=== PATIENT | female | born 1965 | race African-American/Black ===

== ENCOUNTER 2017-01-15 13:35 | Inpatient (IN) ==
[2017-01-15 15:17] LABS: ABG Base Excess 2.1 MMOL/L (-2.5-2.5); ABG HCO3 26.1 MMOL/L (20-26); ABG Oxygen Saturation 78.9 % (95-100); ABG PCO2 36.7 MM HG (35-48); ABG PH 7.458 (7.35-7.45); ABG PO2 45.5 MM HG (80-95); ABG TCO2 24.1 MMOL/L (23-27)
--- NOTE | 2017-01-15 15:20 | XRay Report ---
PA and lateral chest. Indication: Shortness of breath. Comparison: January 06, 2017. The heart is enlarged. The pulmonary vasculature is prominent. The interstitial lung markings are prominent. No consolidation. No pneumothorax. No pleural effusion. Impression: Significant interval change, now with findings consistent with congestive heart failure. PROCEDURE INTERPRETED AT [facility] DEPARTMENT OF RADIOLOGY Final Report Signed by: Dr. Saba Leyva
[2017-01-15] MEDS ORDERED: ALBUTEROL 2.5 MG/3 ML NEB RESP TX STA (15:25)
[2017-01-15 15:41] LABS: Basophils % 0.5 % (0.0-0.8); Eosinophils % 0.5 % (0.00-10.9); Hematocrit 28.7 VOL% (35.7-47.0); Hemoglobin 8.7 GM/DL (12.0-16.0); Immature Granulocytes % 1.5 %; Immature Granulocytes Absolute 0.09 #; Lymphocytes # 0.8 10*3/uL (1.4-4.0); Mean Corpuscular HGB Conc 30.3 GM/DL (32-36); Mean Corpuscular Hemoglobin 21 PG (27-34); Mean Corpuscular Volume 68.8 FL (87-102); Mean Platelet Volume 11.9 FL (9.6-12.0); Monocytes # 0.4 10*3/uL (0.11-0.8); Monocytes % 6.9 % (1.7-12.7); NRBC # 0.03 10*3/uL; Neutrophils # 4.7 10*3/uL (1.4-7.4); Neutrophils % 77.6 % (38.7-73.9); Platelet Count 451 T/CUMM (130-400); Red Blood Count 4.17 MC/CUMM (3.8-5.5); Red Cell Distribution Width 17.6 % (9.3-17.3); White Blood Count 6.1 T/CUMM (4-12)
[2017-01-15] MEDS ORDERED: ALBUTEROL 2.5 MG/3 ML NEB RESP TX ONE (15:54)
[2017-01-15] MEDS ORDERED: ONDANSETRON 4 MG/2 ML VIAL IV PRN (16:07)
[2017-01-15 16:09] LABS: Apearance,Urine CLEAR (Clear); Bacteria,Urine Occasional /HPF (Few); Bilirubin,Urine Negative (Negative); Blood, Urine Negative (Negative); Glucose,Urine (UA) Negative (Negative); Hyaline Casts,Urine 1 /LPF (0-3); Ketones,Urine Negative (Negative); Mucus,Urine Occasional /LPF (Occasional); Nitrite,Urine Negative (Negative); Protein,Urine >=500 MG/DL; RBC,Urine 1 /HPF (0-4); Squamous Epithelial Cell,Urine Occasional /HPF (0-10); Urine Color Amber (Yellow); Urine Specific Gravity 1.015 (1.001-1.035); WBC,Urine 18 /HPF (0-6)
[2017-01-15 16:10] LABS: Alanine Aminotransferase 42 U/L (13-56); Albumin 2.3 G/DL (3.4-5.0); Alkaline Phosphatase 119 U/L (45-117); Aspartate Amino Transferase 106 U/L (0-37); Blood Urea Nitrogen 10 MG/DL (7-18); Calcium 8.2 MG/DL (8.5-10.1); Glucose 91 MG/DL (74-106); Osmolality,Calculated 256.9 MOS/KG (273-304); Potassium 3.3 MMOL/L (3.5-5.1); Sodium 129 MMOL/L (136-145); Total Protein 8.3 G/DL (6.4-8.3); Troponin I Only < 0.015 NG/ML (0.00-0.045)
--- NOTE | 2017-01-15 16:10 | Emergency Department Note ---
Dillan Burnham Brittany, am scribing for, and in the presence of, Uriel Vitale MD 14:04. Iam Burnham Doug C, MD, personally performed the services described in this documentation, ascribed by Madeleine Grimaldo in my presence, and it is both accurate and complete 610 . Arrival - Arrival Chief Complaint: Syncope ED Nursing Triage Note: pt was walking and had near syncope. pt was here last week and dx with HIV. pt also fell last week and hit head and has a headache Mode of Arrival: Stretcher Limitations: No Limitations Source: Patient, RN Notes Reviewed Time Seen by Provider: 01/15/17 13:44 - History of Present Illness HPI Narrative: Impression 51-year-old black female comes emergency room complaining of increased nausea and weakness for over a month. Patient states she has been having fever off and on for several weeks. Patient states she got so weak today that she almost passed out while walking. Patient denies any chest pain which is certainly having quite a bit of shortness of breath. Patient was recently diagnosed as being HIV positive. Patient has had a productive cough and congestion for several weeks now. She denies alcohol or tobacco abuse but has apparently abused cocaine in the past. Patient states she has been having nausea, vomiting and diarrhea has also been losing weight that she cannot quantitate. She told me she had fever at home her temperature is 99.8 here. She denies any hemoptysis Allergies/Adverse Reactions: Allergies Allergy/AdvReac Type Severity Reaction Status Date / Time No Known Allergies Allergy Verified 01/06/17 12:01 Home Medications: Home Medications Medication Instructions Recorded Confirmed Type Fluoxetine HCl [Prozac] 40 mg PO DAILY 10/16/14 01/15/17 History HydrOXYzine PAMOATE CAP [Vistaril 50 mg PO TID PRN 10/16/14 01/15/17 History Cap] QUEtiapine XR [SEROquel XR] 450 mg PO BEDTIME 10/16/14 01/15/17 History Review of System - Review of System 12 point system: reviewed and no additional remarkable complaints except as stated - Review of System Constitutional: Present: chills, fever Eyes: Absent: vision change Head/Ears/Nose/Throat: Absent: nasal drainage, sore throat Respiratory: Present: cough, respiratory distress Cardiovascular: Present: syncope. Absent: chest pain Gastrointestinal: Present: abdominal pain, nausea, vomiting, diarrhea. Absent: constipation, melena, hematochezia Genitourinary female: Absent: dysuria, frequency, urgency Musculoskeletal: Absent: arm pain, back pain, leg pain, neck pain Skin: Absent: rash Neurological: Absent: headache Psychiatric: Absent: anxiety, depression Hematological/Lymphatic: Absent: easy bleeding, easy bruising Medical,Surgical,& Family Hx - Medical History Cardio: No history of: Hypertension Psychological: History of: Anxiety Disorders, Depression, Schizophrenia Endocrine: No history of: Diabetes Mellitus (IDDM), Diabetes Mellitus (NIDDM) Respiratory: No history of: Asthma, Bronchitis, Pneumonia Renal: No history of: Renal Problems Gastrointestinal: History of: GERD No history of: Gastrointestinal Bleed, Liver Problems, GI Problems Musculoskeletal: History of: Back/Neck Problems Reproductive: History of: Sexually Transmitted Disorders (HIV) - Surgical History Abdominal Surgeries: Surgical HX of: Cholecystectomy Reproductive Surgeries: Surgical HX of;: Hysterectomy, Tubal Ligation - Family History Family History: Reports;: Family Hypertension, Family Stroke - Social History Smoking Status: Never smoker Frequency of Alcohol Use: None Type of Drug Use: None Exam Vital Signs: Vital Signs Temperature 99.8 F H 01/15/17 13:37 Pulse Rate 109 H 01/15/17 16:04 Respiratory Rate 18 01/15/17 16:04 Blood Pressure 98/68 01/15/17 15:30 O2 Sat by Pulse Oximetry 100 01/15/17 16:04 - General General appearance: alert, in distress - Head Head exam: Present: atraumatic, normocephalic, normal inspection - Eye Eye exam: Present: normal appearance, PERRL, EOMI - ENT ENT exam: Present: normal exam, normal oropharynx - Neck Neck exam: Present: normal inspection, full ROM, trachea midline - Chest Chest inspection: Present: normal inspection, symmetric chest wall rise - Respiratory Respiratory exam: Present: rales (All lung awan), rhonchi (All lung awan). Absent: normal lung sounds bilaterally - Cardiovascular Cardiovascular exam: Present: regular rate, normal rhythm, normal heart sounds. Absent: murmur, rubs, gallop - Abdominal Exam Abdominal exam: Present: soft, normal bowel sounds. Absent: tenderness - Extremities Exam Extremities exam: Present: normal inspection - Back Exam Back exam: Present: normal inspection - Neurological Exam Neurological exam: Present: alert, oriented X3, CN II-XII intact. Absent: motor sensory deficit - Psychiatric Psychiatric exam: Present: normal affect, normal mood - Skin Skin exam: Present: warm, dry Course Course Narrative: Patient's clinical presentation, radiographic and laboratory Findings were discussed with Phyllis who is covering the hospitalist service. She will see the patient emergency room and evaluate for admission. Results - Labs CBC & BMP: 01/15/17 15:08 Lab Results: I have reviewed the patients labs Labs: Laboratory Tests 01/15/17 15:10 ABG pH 7.458 H ABG pCO2 36.7 ABG pO2 45.5 L ABG HCO3 26.1 H ABG Total CO2 24.1 ABG O2 Saturation 78.9 L ABG Base Excess 2.1 - EKG EKG results: interpreted by MARIAMD EKG shows: tachycardia (Sinus tachycardia at 119 bpm) - Impressions Right bundle branch block - Diagnostic Findings Procedure: Chest x-ray: report reviewed by me ( Significant interval change, now with findings consistent with congestive heart failure.) Disposition Clinical Impression: Pneumonitis, Hypoxia Case discussed with: patient, patient's family Disposition: Still a Patient Condition: Guarded Time of Disposition: 16:10
[2017-01-15 16:15] LABS: Barbiturates Screen,Urine Negative (Negative); Benzodiazepines Screen,Urine Negative (Negative); Cannabinoid Screen,Urine Negative (Negative); Opiate Screen,Urine Negative (Negative); Phencyclidine Screen,Urine Negative (Negative)
[2017-01-15] MEDS ORDERED: ONDANSETRON 4 MG/2 ML VIAL ONE (16:29)
[2017-01-15] MEDS ORDERED: MAGNESIUM SULF RIDER 2 GM in PREMIX 1 EACH IV PRN (17:21)
[2017-01-15] MEDS ORDERED: MAGNESIUM SULF RIDER 4 GM in PREMIX 1 EACH IV PRN (17:21)
--- NOTE | 2017-01-15 17:34 | Hospitalist History & Physical ---
Assessment and Plan (1) Acute HIV infection Status: Acute Assessment and plan: The patient's HIV infection is recent. During the last clinical encounter here at [facility] on January 06, 2017, the patient was subsequently diagnosed as HIV positive. The patient reported that she has not sought medical attention since the subsequent diagnosis. She reported that her symptoms remained severe. We will consult infectious disease to evaluate and offer recommendations. In addition, we will complete an acute infection workup. We will start Bactrim 600 mg IV every 6 hours. We will gently rehydrate and provide supplemental oxygen for hypoxia. The patient will be placed in the critical care setting for close observation. Current Visit: Yes (2) Hypoxia Status: Acute Assessment and plan: The patient's hypoxia is severe in nature. The patient's O2 saturations on room air were noted to be less than 85%. Arterial blood gas on room air were significant for pH of 7.48, PO2 45.5, HCO3 26.1. We will provide supplemental oxygen. In addition, we will order inhaled bronchodilator treatments and provide supportive measures. Current Visit: Yes (3) Sepsis Status: Acute Assessment and plan: The patient was assessed at the time of ED presentation. The patient was noted to be grossly hypoxic with an O2 saturation less than 85%. The patient was tachycardic with a heart rate of 109 and mildly febrile with a temperature of 99.8. Labs were obtained which were significant for white blood cell count 6.1 , neutrophils 77.6, lymphocytes 13.0, hemoglobin 8.7, hematocrit 28.7, platelet count 451, sodium 129, potassium 3.3, chloride 94, calculated osmolality 256.9, AST 106, alkaline phosphatase 119, albumin 2.3, triglycerides 158, and HDL 25. Urinalysis was significant for urine urobilinogen at 4.0, urine leukocytes trace , urine RBCs 1, urine WBCs 18, hyaline casts 1, and occasional urine bacteria, urine mucus, and urine squamous epithelial cells. Chest x-ray significant for cardiomegaly and prominence of the pulmonary vasculature. Interstitial lung markings were also noted to be prominent however, no consolidation, pneumothorax , or pleural effusion is noted. Based on the above findings, the patient meets the sepsis criteria. The sepsis bundle has been initiated. Current Visit: Yes History of Present Illness Chief complaint: Syncope History of present illness: This is a poor and unfortunate 51-year-old female that presented to the ED at [facility] this afternoon for the evaluation of syncope. Patient has a medical history significant for polysubstance abuse, anxiety, depression, schizophrenia, gastroesophageal reflux disease, and a recent HIV diagnosis. The patient has a surgical history significant for cholecystectomy, hysterectomy, tubal ligation. The patient reported the onset of symptoms 1 month prior to presentation. The patient reported that she had been experiencing intermittent fever for several weeks. The patient also developed a cough and "flulike" symptoms and sought medical attention multiple times at [facility] and at the [facility]. Her symptoms became severe on last week prompting her to present to the ED at [facility] for evaluation. During the clinical encounter, the patient was that she was HIV positive, given nystatin swish and swallow, Zofran, and promethazine DM syrup and sent home. The patient reported that her symptoms fail to improve. Today, she was attempting to ambulate at home when she experienced a syncopal episode. Her family became alarmed and called 911 for emergency assistance. The patient was subsequently transferred to [facility] for further evaluation. The patient was assessed at the time of ED presentation. The patient was noted to be grossly hypoxic with an O2 saturation less than 85%. The patient was tachycardic with a heart rate of 109 and mildly febrile with a temperature of 99.8. Labs were obtained which were significant for hemoglobin 8.7, hematocrit 28.7, platelet count 451, sodium 129, potassium 3.3, chloride 94, calculated osmolality 256.9, AST 106, alkaline phosphatase 119, albumin 2.3, triglycerides 158, and HDL 25. Urinalysis was significant for urine urobilinogen at 4.0, urine leukocytes trace, urine RBCs 1, urine WBCs 18, hyaline casts 1, and occasional urine bacteria, urine mucus, and urine squamous epithelial cells. Chest x-ray significant for cardiomegaly and prominence of the pulmonary vasculature. Interstitial lung markings were also noted to be prominent however , no consolidation, pneumothorax, or pleural effusion is noted. After brief discussion with both Dr. Vitale and Dr. Berry, the patient will be admitted to the hospitalist service for continuation of care. Due to the severity of the patient's hypoxia the patient will be placed in the critical care setting. An infectious disease consultation has been requested to evaluate and assist during the clinical encounter. Home medications have been reviewed and reconciled. CODE STATUS discussed; patient is a FULL CODE. Based on the assessment findings, the patient meets the sepsis criteria. Home Medications Medication Instructions Recorded Confirmed Type Fluoxetine HCl [Prozac] 40 mg PO DAILY 10/16/14 01/15/17 History HydrOXYzine PAMOATE CAP [Vistaril 50 mg PO TID PRN 10/16/14 01/15/17 History Cap] QUEtiapine XR [SEROquel XR] 450 mg PO BEDTIME 10/16/14 01/15/17 History Allergies Allergy/AdvReac Type Severity Reaction Status Date / Time No Known Allergies Allergy Verified 01/06/17 12:01 Medical,Surgical,& Family Hx - Medical History Cardio: No history of: Hypertension Psychological: History of: Anxiety Disorders, Depression, Schizophrenia Endocrine: No history of: Diabetes Mellitus (IDDM), Diabetes Mellitus (NIDDM) Respiratory: No history of: Asthma, Bronchitis, Pneumonia Renal: No history of: Renal Problems Gastrointestinal: History of: GERD No history of: Gastrointestinal Bleed, Liver Problems, GI Problems Musculoskeletal: History of: Back/Neck Problems Reproductive: History of: Sexually Transmitted Disorders (HIV) - Surgical History Abdominal Surgeries: Surgical HX of: Cholecystectomy Reproductive Surgeries: Surgical HX of;: Hysterectomy, Tubal Ligation - Family History Family History: Reports;: Family Hypertension, Family Stroke - Social History Smoking Status: Never smoker Frequency of Alcohol Use: None Type of Drug Use: None Marital Status: Single Lives With:: Alone Functional capacity: independent ambulation 12 point system: reviewed and no additional remarkable complaints except as stated Exam - Constitutional Vitals: Period Temp Pulse Resp BP Sys/Molina Pulse Ox Last 24 Hr 99.8 F-99.8 F 101-126 18-36 93-114/64-78 75-100 General appearance: normal weight, mild distress - Head Head exam: Present: normal inspection, normocephalic, atraumatic - Eye Eye exam: Present: EOMI. Absent: conjunctival injection Pupils: Present: IRIS, normal accommodation - ENT ENT exam: Present: normal exam, normal external ear exam, normal oropharynx - Neck Neck exam: Present: normal inspection, lymphadenopathy, meningismus. Absent: thyromegaly - Respiratory Respiratory exam: Present: rales, rhonchi, other (Tachypnea) - Cardiovascular Cardiovascular exam: Present: tachycardia. Absent: carotid bruit, diastolic murmur, gallop, JVD, rubs - GI/Abdominal GI/Abdominal exam: Present: normal bowel sounds, soft. Absent: tenderness - Extremities Exam Extremities exam: Present: normal inspection, normal capillary refill, full ROM. Absent: edema - Back Exam Back exam: Present: normal inspection - Neurological Exam Neurological exam: Present: alert, oriented X3, CN II-XII intact - Psychiatric Psychiatric exam: Present: flat affect - Skin Skin exam: Present: normal color, warm, dry Results - Labs CBC & BMP: 01/15/17 15:08 01/15/17 15:08 Lab Results: I have reviewed the past 24 hour labs Sepsis - Sepsis Classification of Sepsis: Sepsis Possible / Suspected infection from: Urinary tract/acute HIV infection - Physical Exam Physical Exam: The patient was assessed at the time of ED presentation. The patient was noted to be grossly hypoxic with an O2 saturation less than 85%. The patient was tachycardic with a heart rate of 109 and mildly febrile with a temperature of 99.8. Labs were obtained which were significant for white blood cell count 6.1 , neutrophils 77.6, lymphocytes 13.0, hemoglobin 8.7, hematocrit 28.7, platelet count 451, sodium 129, potassium 3.3, chloride 94, calculated osmolality 256.9, AST 106, alkaline phosphatase 119, albumin 2.3, triglycerides 158, and HDL 25. Urinalysis was significant for urine urobilinogen at 4.0, urine leukocytes trace , urine RBCs 1, urine WBCs 18, hyaline casts 1, and occasional urine bacteria, urine mucus, and urine squamous epithelial cells. Chest x-ray significant for cardiomegaly and prominence of the pulmonary vasculature. Interstitial lung markings were also noted to be prominent however, no consolidation, pneumothorax , or pleural effusion is noted. Based on the above findings, the patient meets the sepsis criteria. The sepsis bundle has been initiated.
[2017-01-15 17:39] LABS: Risk Ratio 4.6; VLDL CHOLESTEROL 31.6 MG/DL
[2017-01-15] MEDS: MORPHINE 2 MG/1 ML SYRINGE IV PRN (17:57)
[2017-01-15] MEDS: ENOXAPARIN 40 MG/0.4 ML SYRINGE SUBCUT SCH (18:01)
[2017-01-15] MEDS: SODIUM CHLORIDE 0.9% 1,000 ML IV SCH (18:01)
[2017-01-15] MEDS: SULFAMETH/TRIMETH INJ 300 MG in DEXTROSE 5% 500 ML IV SCH ×2 (18:01→22:31)
[2017-01-15] MEDS ORDERED: ALBUTEROL 2.5 MG/3 ML NEB RESP TX PRN (18:36)
[2017-01-15 19:47] LABS: Hepatitis A Ab IgM Quant 0.12 Index; Hepatitis A Ab IgM Result Negative (Negative); Hepatitis B Core IgM Quant 0.12 Index; Hepatitis B Core IgM Result Negative (Negative); Hepatitis B Surface Ag Quant 0.38 Index; Hepatitis B Surface Ag Result Negative (Negative); Hepatitis C Virus Ab Quant 0.15 Index; Hepatitis C Virus Ab Result Negative (Negative)
[2017-01-15] MEDS: ALBUTEROL/IPRATROPIUM 3 ML NEB RESP TX SCH (20:17)
[2017-01-15] MEDS: AZITHROMYCIN INJ 500 MG in SODIUM CHLORIDE 0.9% 250 ML IV SCH (20:54)
[2017-01-15] MEDS: BENZONATATE 100 MG CAPSULE PO SCH (20:55)
[2017-01-15] MEDS: QUEtiapine XR 50 MG TABLET PO SCH (20:55)
[2017-01-15 21:25] LABS: HIV Antigen/Antibody Result Reactive (Nonreactive)
[2017-01-15] MEDS ORDERED: SODIUM CHLORIDE 0.9% 500 ML IV ONE (22:16)
[2017-01-15] MEDS: POTASSIUM CHLORIDE RIDER 10 MEQ in PREMIX 1 EACH IV PRN ×3 (22:39→23:52)
[2017-01-16] MEDS: POTASSIUM CHLORIDE RIDER 10 MEQ in PREMIX 1 EACH IV PRN ×3 (00:23→10:16)
[2017-01-16] MEDS: ALBUTEROL/IPRATROPIUM 3 ML NEB RESP TX SCH ×5 (00:42→23:30)
[2017-01-16 03:52] LABS: ABG Base Excess -0.1 MMOL/L (-2.5-2.5); ABG HCO3 24.3 MMOL/L (20-26); ABG Oxygen Saturation 91.1 % (95-100); ABG PCO2 41.6 MM HG (35-48); ABG PH 7.386 (7.35-7.45); ABG PO2 67.9 MM HG (80-95); ABG TCO2 22.7 MMOL/L (23-27); Allen Test Positive; Pt O2 Delivery Device Venturi Mask
[2017-01-16] MEDS: SODIUM CHLORIDE 0.9% 1,000 ML IV SCH ×4 (04:01→23:35)
[2017-01-16] MEDS ORDERED: ADENOSINE 6 MG/2 ML VIAL ONE ×2 (04:59→05:07)
[2017-01-16] MEDS ORDERED: ACETAMINOPHEN 325 MG TABLET PO ONE (05:00)
[2017-01-16] MEDS ORDERED: ADENOSINE 6 MG/2 ML VIAL IV ONE ×3 (05:03→05:07)
[2017-01-16] MEDS ORDERED: FUROSEMIDE 40 MG/4 ML VIAL ONE (05:08)
[2017-01-16] MEDS ORDERED: FUROSEMIDE 40 MG/4 ML VIAL IV ONE (05:08)
[2017-01-16] MEDS ORDERED: DILTIAZEM 50 MG/10 ML VIAL IV ONE ×2 (05:10→05:11)
--- NOTE | 2017-01-16 05:33 | EKG Report ---
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
[2017-01-16 05:34] LABS: ABG Base Excess -2.7 MMOL/L (-2.5-2.5); ABG HCO3 22.2 MMOL/L (20-26); ABG Oxygen Saturation 99.5 % (95-100); ABG PCO2 32.2 MM HG (35-48); ABG PH 7.426 (7.35-7.45); ABG TCO2 19.8 MMOL/L (23-27)
[2017-01-16 05:37] LABS: Basophils % 0.3 % (0.0-0.8); Eosinophils % 0.3 % (0.00-10.9); Hematocrit 25.6 VOL% (35.7-47.0); Hemoglobin 7.7 GM/DL (12.0-16.0); Immature Granulocytes % 1.1 %; Immature Granulocytes Absolute 0.07 #; Lymphocytes # 0.5 10*3/uL (1.4-4.0); Lymphocytes % 8.1 % (21.3-54.2); Mean Corpuscular HGB Conc 30.1 GM/DL (32-36); Mean Corpuscular Hemoglobin 21 PG (27-34); Mean Platelet Volume 11.4 FL (9.6-12.0); Monocytes # 0.3 10*3/uL (0.11-0.8); Monocytes % 3.8 % (1.7-12.7); NRBC # 0.02 10*3/uL; Neutrophils # 5.7 10*3/uL (1.4-7.4); Neutrophils % 86.4 % (38.7-73.9); Platelet Count 400 T/CUMM (130-400); Red Blood Count 3.71 MC/CUMM (3.8-5.5); Red Cell Distribution Width 17.8 % (9.3-17.3); White Blood Count 6.6 T/CUMM (4-12)
[2017-01-16] MEDS: SULFAMETH/TRIMETH INJ 300 MG in DEXTROSE 5% 500 ML IV SCH ×4 (05:48→23:35)
[2017-01-16] MEDS: MEROPENEM 1,000 MG in SODIUM CHLORIDE 0.9% 50 ML IV SCH ×3 (05:56→22:39)
[2017-01-16 05:58] LABS: Calcium 7.7 MG/DL (8.5-10.1); Osmolality,Calculated 266.2 MOS/KG (273-304); Potassium 3.2 MMOL/L (3.5-5.1)
--- NOTE | 2017-01-16 06:00 | Event Note ---
Was called by ICU nurse reported patient was tachycardic at a rate of around 145. She also had dropped her sats requiring nonrebreather mask which was gradually increased up to 100%. At that her O2 sat is 100%. Patient was awake and coherent. She was obviously uncomfortable and dyspneic. EKG read SVT at a rate of 145. She was however usually shivering and had trouble holding still so tracing had significant artifact. She was given adenosine 6 mg then 12 mg twice. With a 12 mg her rate did drop to around 130 but then went back up. She had put out 300 cc of urine the previous hour. She was given 40 mg Lasix IV. She was shivering frequently and her temperature did go up to 101.4 axillary as I recall. She also got 10 mg diltiazem which seemed to slow her rate into the 130s. After her's O2 sats were in the 100s for while she converted to sinus rhythm at a rate of 120. Chest x-ray portable by my observation actually looks possibly better than several hours previously certainly no worse with biased lateral lower lung interstitial markings. I suspect this could have been sinus tachycardia all along as the tracing was distorted and the computer may have misread SVT. At this point she has been stabilized. Last I saw she was in sinus rhythm at a rate of 120 with a blood pressure 120/70. We added meropenem and vancomycin for that shaking chill and fever to the Bactrim she was already on. Pulmonary medicine has been consulted. Infectious disease is already on the case
[2017-01-16] MEDS: NOREPINEPHRINE 8 MG in SODIUM CHLORIDE 0.9% 242 ML IV SCH (06:05)
[2017-01-16] MEDS: HydrOXYzine PAMOATE 50 MG CAPSULE PO PRN ×2 (06:28→13:51)
[2017-01-16 06:33] LABS: Bilirubin,Total 0.8 MG/DL (0.2-1.0); Calcium 7.7 MG/DL (8.5-10.1); Osmolality,Calculated 268.1 MOS/KG (273-304); Potassium 3.3 MMOL/L (3.5-5.1); Total Protein 7.3 G/DL (6.4-8.3)
--- NOTE | 2017-01-16 07:11 | EKG Report ---
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
--- NOTE | 2017-01-16 07:42 | Pulmonology Consult Note ---
Assessment and Plan (1) History of schizophrenia Status: Acute Assessment and plan: The patient apparently takes Prozac and Seroquel. Current Visit: Yes (2) Pneumonitis Status: Acute Assessment and plan: Patient does have bilateral infiltrates and could possibly have pneumocystis. Specimens are being collected and she is on IV Bactrim along with vancomycin. She did diurese a little also. She may need steroids added. Current Visit: Yes (3) Acute HIV infection Status: Acute Assessment and plan: She will be followed by ID Current Visit: Yes (4) Sepsis Status: Acute Assessment and plan: Her blood pressure and heart rate are better at present. Current Visit: Yes History of Present Illness Chief complaint: Shortness of breath History of present illness: Ms. Vu is a 51 year old black female that apparently has a history of having substance abuse along with schizophrenia and depression. The past week or so she was diagnosed with HIV infection. She has not begun any treatment. The patient has been having a cough and fever and flulike symptoms. She has been feeling weak and having some loose stools. She came in after a near syncopal event. She has been more short of breath and having a tachycardia. She had SVT and converted to a sinus rhythm with Adenocard. She was hypoxic early on but is much better now. She had diffuse infiltrates that look better now. She is a little lethargic but does arouse okay. Home Medications Medication Instructions Recorded Confirmed Type Fluoxetine HCl [Prozac] 40 mg PO DAILY 10/16/14 01/15/17 History HydrOXYzine PAMOATE CAP [Vistaril 50 mg PO TID PRN 10/16/14 01/15/17 History Cap] QUEtiapine XR [SEROquel XR] 450 mg PO BEDTIME 10/16/14 01/15/17 History Allergies Allergy/AdvReac Type Severity Reaction Status Date / Time No Known Allergies Allergy Verified 01/06/17 12:01 ROS unobtainable: due to mental status (She really cannot give any history now.) Exam (Pulmonay) H&P - Constitutional Vitals: Period Temp Pulse Resp BP Sys/Molina Pulse Ox Last 24 Hr 97.7 F-99.9 F 90-149 18-42 83-114/51-78 75-100 General appearance: normal weight, mild distress (She is comfortable on facemask oxygen.) - Head Head exam: Present: normal inspection, normocephalic - Eye Eye exam: Present: EOMI. Absent: scleral icterus Pupils: Present: IRIS - ENT ENT exam: Present: other (No oral lesions) - Neck Neck exam: Absent: lymphadenopathy, meningismus, thyromegaly - Respiratory Respiratory exam: Present: rales, other (She has fair breath sounds bilaterally with some mild rales). Absent: accessory muscle use - Cardiovascular Cardiovascular exam: Present: regular rate and rhythm, tachycardia. Absent: gallop, systolic murmur - GI/Abdominal GI/Abdominal exam: Present: normal bowel sounds, soft. Absent: organomegaly, tenderness - Extremities Exam Extremities exam: Absent: calf tenderness, edema - Neurological Exam Neurological exam: Present: altered (She arouses okay but is a little lethargic. ) - Psychiatric Psychiatric exam: Absent: anxious - Skin Skin exam: Present: warm, dry Medical,Surgical,& Family Hx - Medical History Cardio: No history of: Hypertension Psychological: History of: Anxiety Disorders, Depression, Schizophrenia Endocrine: No history of: Diabetes Mellitus (IDDM), Diabetes Mellitus (NIDDM) Respiratory: No history of: Asthma, Bronchitis, Pneumonia Renal: No history of: Renal Problems Gastrointestinal: History of: GERD No history of: Gastrointestinal Bleed, Liver Problems, GI Problems Musculoskeletal: History of: Back/Neck Problems Reproductive: History of: Sexually Transmitted Disorders (HIV) Other: History of: HIV - Surgical History Abdominal Surgeries: Surgical HX of: Cholecystectomy Reproductive Surgeries: Surgical HX of;: Hysterectomy, Tubal Ligation - Family History Family History: Reports;: Family Hypertension, Family Stroke - Social History Smoking Status: Never smoker Frequency of Alcohol Use: None Type of Drug Use: None Results - Labs CBC & BMP: 01/16/17 03:35 01/16/17 05:30 Labs: Her PO2 was 45 when she first came in. Now her PO2 is 253. - Diagnostic Findings Procedure: Chest x-ray: image reviewed by me, report reviewed by me (Chest x- ray shows bilateral infiltrates.)
[2017-01-16] MEDS: PANTOPRAZOLE 40 MG TABLET PO SCH (09:00)
[2017-01-16] MEDS: FLUoxetine 20 MG CAPSULE PO SCH (09:00)
[2017-01-16] MEDS: BENZONATATE 100 MG CAPSULE PO SCH ×3 (09:00→21:21)
[2017-01-16] MEDS: VANCOMYCIN INJ 1,000 MG in SODIUM CHLORIDE 0.9% 250 ML IV SCH ×2 (09:08→21:20)
--- NOTE | 2017-01-16 10:48 | ECHO Report ---
Mirella Germaine Exam Date: 01/16/2017 09:56 Referring Physician: Technologist: Rimma Arauz Age: 51 Ht (in): 61 Wt (lb): 150 Gender: F Exam Location: [facility] Echo Indications: sepsis, pneumonia, HIV, hypoxia, syncope, leukocytosis BP: 85 / 51 HR: 115 Rhythm: tachycardia Technical Quality: average IMPRESSIONS Left ventricular ejection fraction is estimated at 60 % with no regional wall motion abnormality. Mild concentric left ventricular hypertrophy. There is grade 1 diastolic dysfunction resting sinus tachycardia at 112 bpm. Tricuspid regurgitation velocities suggest a RVSP of 23 mmHg + RAP. Mild pulmonary valve regurgitation. MEASUREMENTS (Male / Female) Normal Values 2D ECHO LV Diastolic Diameter PLAX 3.9 cm 4.2 - 5.9 / 3.9 - 5.3 cm LV Systolic Diameter PLAX 1.8 cm LV Fractional Shortening PLAX 53.8 % IVS Diastolic Thickness 1.1 cm 0.6 - 1.0 / 0.6 - 0.9 cm LVPW Diastolic Thickness 1.0 cm 0.6 - 1.0 / 0.6 - 0.9 cm Aortic Root Diameter 2.0 cm LA Systolic Diameter LX 2.9 cm 3.0 - 4.0 / 2.7 - 3.8 cm DOPPLER TR Peak Velocity 238.0 cm/s TR Peak Gradient 22.7 mmHg FINDINGS Left Ventricle Normal left ventricular cavity size. Mild concentric left ventricular hypertrophy. Left ventricular ejection fraction is estimated at 60 % with no regional wall motion abnormality. There is grade 1 diastolic dysfunction resting sinus tachycardia at 112 bpm Right Ventricle Normal right ventricular size. Right Atrium Normal right atrial size. Left Atrium Normal left atrial size. Mitral Valve Morphologically normal mitral valve. Aortic Valve The aortic valve is trileaflet and has normal motion. Tricuspid Valve Morphologically normal tricuspid valve. Trace tricuspid valve regurgitation. Tricuspid regurgitation velocities suggest a RVSP of 23 mmHg + RAP. Pulmonic Valve Morphologically normal pulmonic valve. Mild pulmonary valve regurgitation Pericardium No pericardial effusion. Aorta Normal size aortic root and proximal ascending aorta. Iris To (Electronically Signed) Final Date: 16 January 2017 10:47
--- NOTE | 2017-01-16 10:51 | Hospitalist Progress Note ---
Assessment and Plan (1) Acute HIV infection Status: Acute Assessment and plan: History of psychiatric disorder with polysubstance abuse. Presenting prolonged course of fever with progressive respiratory impairment with markedly increased AAO2 gradient. Patient is being covered with broad-spectrum antibiotics as well as pneumocystis active therapy. Current Visit: Yes Hospitalist: Subjective Interval history: 51-year-old female history of psychiatric disorders, polysubstance abuse, with recent diagnosis of HIV infection untreated at this time. Patient presented with history of fever over several weeks with cough. She presented on this occasion with deterioration in her chest x-ray appearance compared to an ER visit January 06 here with new infiltrates, hypoxemia, and anemia. She has been placed in ICU with pulmonary consult and respiratory support. Her vital signs are stable and PO2 has responded to facemask application. She is receiving blood transfusion at this time. Exam - Constitutional Vitals: Period Temp Pulse Resp BP Sys/Molina Pulse Ox Last 24 Hr 97.7 F-99.9 F 90-149 18-42 78-114/50-78 75-100 General appearance: normal weight - Respiratory Respiratory exam: Present: rales, other (Vesicular breath sounds bilaterally). Absent: rhonchi, wheezes - Cardiovascular Cardiovascular exam: Present: regular rate and rhythm - GI/Abdominal GI/Abdominal exam: Present: normal bowel sounds. Absent: distended, organomegaly, tenderness - Extremities Exam Extremities exam: Absent: edema - Neurological Exam Neurological exam: Present: alert, oriented X3 Results - Labs CBC & BMP: 01/16/17 03:35 01/16/17 05:30 Labs: PH 7.43 PCO2 PO2 253 on 60% face mask - Impressions Sinus rhythm bundle branch block with left anterior fascicular block - Diagnostic Findings Procedure: Chest x-ray: image reviewed by me (Bilateral alveolar/interstitial infiltrate)
--- NOTE | 2017-01-16 11:31 | XRay Report ---
History is short of breath Chest one view 01/16/2017 at 5:15 AM Comparison with earlier the same day Heart and vessels remain mildly enlarged with moderate diffuse bilateral up hazy pulmonary opacities. There is been no great change attending for differences in technique Impression: No significant change in the diffuse bilateral infiltrates versus edema PROCEDURE INTERPRETED AT [facility] DEPARTMENT OF RADIOLOGY Final Report Signed by: Dr. Oralia Leyva
--- NOTE | 2017-01-16 11:46 | XRay Report ---
History is short of breath Comparison 01/15/2017 The heart is mildly enlarged There is mild worsening of moderate diffuse bilateral hazy and reticular bilateral pulmonary opacities without more focal consolidation. Upper lobe vascular prominence remains Impression: Slight worsening of diffuse bilateral pulmonary opacities most likely edema PROCEDURE INTERPRETED AT [facility] DEPARTMENT OF RADIOLOGY Final Report Signed by: Dr. Oralia Leyva
--- NOTE | 2017-01-16 11:58 | EKG Report ---
Stationary ECG Study [facility] ER Test Date: 01/15/2017 1:45:52 PM Pat Name: NYASIA MIRANDA Department: Room: 110 Gender: F Lip Cutter: : 1965 Requested by: Pradeep Gutierrez Order Number: [id number] Reading MD: URBANO SINGH Intervals [place] Rate: 119 P: 72 OR: 139 QRS: -58 QRSD: 128 T: 35 QT: 369 QTc: 439 Interpretive Statements SINUS TACHYCARDIA RIGHT BUNDLE BRANCH BLOCK LEFT ANTERIOR FASCICULAR BLOCK Electronically Signed On 01-16-17 18:42:11 CDT by URBANO SINGH [email or web address]
[2017-01-16] MEDS: methylPREDNISolone SOD SUC 40 MG/1 ML VIAL IV SCH ×2 (13:48→18:25)
[2017-01-16] MEDS: POTASSIUM CHLORIDE 20 MEQ TABLET PO SCH ×3 (13:49→21:21)
[2017-01-16] MEDS: ACETAMINOPHEN 325 MG TABLET PO PRN (14:36)
[2017-01-16] MEDS: MORPHINE 2 MG/1 ML SYRINGE IV PRN (15:10)
[2017-01-16] MEDS: ENOXAPARIN 40 MG/0.4 ML SYRINGE SUBCUT SCH (18:25)
[2017-01-16] MEDS: AZITHROMYCIN INJ 500 MG in SODIUM CHLORIDE 0.9% 250 ML IV SCH (21:20)
[2017-01-16] MEDS: QUEtiapine XR 50 MG TABLET PO SCH (21:26)
[2017-01-17] MEDS: methylPREDNISolone SOD SUC 40 MG/1 ML VIAL IV SCH ×4 (01:40→19:10)
[2017-01-17] MEDS: NOREPINEPHRINE 8 MG in SODIUM CHLORIDE 0.9% 242 ML IV SCH ×3 (01:41→20:05)
[2017-01-17] MEDS: POTASSIUM CHLORIDE 20 MEQ TABLET PO SCH (01:41)
[2017-01-17] MEDS ORDERED: BENZOCAINE/MENTHOL LOZENGE 18/BOX PO PRN (01:59)
[2017-01-17 02:32] LABS: ABG Base Excess -5.6 MMOL/L (-2.5-2.5); ABG HCO3 20.7 MMOL/L (20-26); ABG Oxygen Saturation 93.1 % (95-100); ABG PH 7.291 (7.35-7.45); ABG PO2 72.8 MM HG (80-95); ABG TCO2 22.1 MMOL/L (23-27); Allen Test Positive
[2017-01-17 03:31] LABS: Basophils % 0.2 % (0.0-0.8); Hematocrit 29.3 VOL% (35.7-47.0); Hemoglobin 9.1 GM/DL (12.0-16.0); Immature Granulocytes % 2.9 %; Immature Granulocytes Absolute 0.15 #; Lymphocytes # 0.3 10*3/uL (1.4-4.0); Mean Corpuscular HGB Conc 31.1 GM/DL (32-36); Mean Corpuscular Hemoglobin 23 PG (27-34); Mean Corpuscular Volume 72.7 FL (87-102); Mean Platelet Volume 11.4 FL (9.6-12.0); Monocytes # 0.1 10*3/uL (0.11-0.8); Monocytes % 1.6 % (1.7-12.7); Neutrophils # 4.6 10*3/uL (1.4-7.4); Neutrophils % 89.3 % (38.7-73.9); Platelet Count 327 T/CUMM (130-400); Red Blood Count 4.03 MC/CUMM (3.8-5.5); Red Cell Distribution Width 19.9 % (9.3-17.3); White Blood Count 5.1 T/CUMM (4-12)
[2017-01-17 03:38] LABS: Allen Test Positive
[2017-01-17 03:40] LABS: ABG Base Excess -5.7 MMOL/L (-2.5-2.5); ABG HCO3 19.7 MMOL/L (20-26); ABG Oxygen Saturation 95.4 % (95-100); ABG PCO2 41.6 MM HG (35-48); ABG PH 7.298 (7.35-7.45); ABG PO2 87.1 MM HG (80-95)
[2017-01-17] MEDS ORDERED: ETOMIDATE 20 MG/10 ML VIAL IV ONE ×2 (03:56→04:13)
[2017-01-17] MEDS ORDERED: SUCCINYLCHOLINE 200 MG/10 ML VIAL ONE (03:57)
[2017-01-17 03:59] LABS: Calcium 7.8 MG/DL (8.5-10.1); Magnesium 2.2 MG/DL (1.8-2.4); Osmolality,Calculated 282.1 MOS/KG (273-304); Potassium 5.4 MMOL/L (3.5-5.1)
[2017-01-17] MEDS ORDERED: SUCCINYLCHOLINE 200 MG/10 ML VIAL IV ONE (04:13)
[2017-01-17] MEDS: PROPOFOL 1,000 MG/100 ML BOTTLE IV SCH ×4 (04:25→17:17)
[2017-01-17] MEDS ORDERED: fentaNYL INJ 1,250 MCG in SODIUM CHLORIDE 0.9% 225 ML IV SCH (04:30)
[2017-01-17 04:50] LABS: Allen Test Positive; Pt O2 Delivery Device Ventilator
[2017-01-17 04:51] LABS: ABG Base Excess -6.1 MMOL/L (-2.5-2.5); ABG HCO3 21.6 MMOL/L (20-26); ABG Oxygen Saturation 98.4 % (95-100); ABG PO2 161.1 MM HG (80-95); ABG TCO2 23.3 MMOL/L (23-27)
[2017-01-17] MEDS: ALBUTEROL/IPRATROPIUM 3 ML NEB RESP TX SCH ×3 (04:52→20:06)
[2017-01-17] MEDS ORDERED: fentaNYL 100 MCG/2 ML VIAL IV ONE (04:56)
--- NOTE | 2017-01-17 05:03 | Event Note ---
Nurse called and informed patient's mental status and oxygenation had steadily declined despite increase in oxygenation efforts. Oxygen saturations were currently in the 80's on 15LPM per NRB. Upon assessment, patient was lethargic with shallow breathing. Oxygen saturations were 80% on 15LPM per NRB. Daughter at bedside and informed of patient's situation. Decision was made to intubate due to increase in oxygen demands and level of consciousness. ABG's with minimal improvement. Patient was pre-oxygenated with BVM with highest oxygen saturations of 95%. Good chest rise and fall. Medications and equipment prepared. Patient was induced with Etomidate and Succinycholine until complete flaccidity. Patient was intubated with 7.5 cuffed ETT x1 attempt. Visualization of ETT through cords. Stylet removed and cuff inflated with 6mL of air. Positive color change with CO2 detector. Respirations resumed with BVM. Symmetrical rise and fall of chest noted. No epigastric sounds auscultated. Clear, bilateral breath sounds auscultated to all awan. Fogging of ETT noted. ETT secured with ETT hernandez. CXR and repeat ABG pending. Total airway time <3 seconds. Lowest oxygen saturation reported was 90%. Repeat vital signs stable.
[2017-01-17 05:50] LABS: ABG Base Excess -6.8 MMOL/L (-2.5-2.5); ABG HCO3 20.8 MMOL/L (20-26); ABG PCO2 51.8 MM HG (35-48); ABG PH 7.221 (7.35-7.45); ABG PO2 125.7 MM HG (80-95); ABG TCO2 22.4 MMOL/L (23-27); Allen Test Positive; Pt O2 Delivery Device Ventilator
[2017-01-17] MEDS: SULFAMETH/TRIMETH INJ 300 MG in DEXTROSE 5% 500 ML IV SCH ×4 (06:20→22:49)
[2017-01-17] MEDS: MEROPENEM 1,000 MG in SODIUM CHLORIDE 0.9% 50 ML IV SCH ×3 (06:21→22:06)
--- NOTE | 2017-01-17 07:09 | Pulmonology Progress Note ---
Pulmonary - PN: Subj Interval history: The patient is a 51-year-old black lady that has recently been diagnosed with HIV infection. She has not had any treatment. She has a history of drug abuse and schizophrenia. She came in with a near syncopal event. She been having diarrhea and not eating very well. She was having SVT and shortness of breath. She does have bilateral infiltrates. Earlier this morning she had to be intubated. She is now on the ventilator. She did have a fever to 101.6. Nothing has shown up on culture so far. She is comfortable on the ventilator at present. Exam (Progress Note) - Constitutional Vitals: Period Temp Pulse Resp BP Sys/Molina Pulse Ox Last 24 Hr 97.6 F-101.6 F 92-130 16-48 78-131/50-80 82-100 Exam: General appearance: normal weight, she is sedated and comfortable on the ventilator. - Head Head exam: Present: normal inspection, normocephalic - Eye Eye exam: Present: EOMI. Absent: scleral icterus Pupils: Present: IRIS - ENT ENT exam: Present: ET tube is in good position. - Neck Neck exam: Absent: lymphadenopathy, meningismus, thyromegaly - Respiratory Respiratory exam: Present: She has good breath sounds bilaterally and moving air fairly well. - Cardiovascular Cardiovascular exam: Present: regular rate and rhythm, tachycardia. Absent: gallop, systolic murmur - GI/Abdominal GI/Abdominal exam: Present: normal bowel sounds, soft. Absent: organomegaly, tenderness - Extremities Exam Extremities exam: Absent: calf tenderness, edema - Neurological Exam Neurological exam: Present: She is sedated on the ventilator at present. - Psychiatric Psychiatric exam: Absent: anxious - Skin Skin exam: Present: warm, dry Results - Labs CBC & BMP: 01/17/17 02:47 01/17/17 02:47 Labs: Her PO2 is 125 with a PCO2 of 51 and pH of 7.22 - Diagnostic Findings Procedure: Chest x-ray: image reviewed by me, report reviewed by me (Chest x- ray still shows mild infiltrates bilaterally.) Assessment and Plan (1) History of schizophrenia Status: Acute Assessment and plan: The patient apparently takes Prozac and Seroquel. Current Visit: Yes (2) Pneumonitis Status: Acute Assessment and plan: Patient does have bilateral infiltrates and could possibly have pneumocystis. Specimens are being collected and she is on IV Bactrim along with vancomycin. She did diurese a little also. She has had hypoxemia and is now on the ventilator. She is stable on the ventilator. Current Visit: Yes (3) Acute HIV infection Status: Acute Assessment and plan: She will be followed by ID Current Visit: Yes (4) Sepsis Status: Acute Assessment and plan: Her blood pressure and heart rate are better at present. She is on low-dose Levophed after giving sedation. She is still getting IV fluids. Current Visit: Yes
[2017-01-17] MEDS: VANCOMYCIN INJ 1,000 MG in SODIUM CHLORIDE 0.9% 250 ML IV SCH ×2 (07:53→20:06)
[2017-01-17] MEDS: SODIUM CHLORIDE 0.9% 1,000 ML IV SCH ×3 (08:08→23:55)
[2017-01-17] MEDS: FLUoxetine 20 MG CAPSULE PO SCH (08:09)
[2017-01-17] MEDS: PANTOPRAZOLE 40 MG TABLET PO SCH (08:09)
[2017-01-17] MEDS: BENZONATATE 100 MG CAPSULE PO SCH (08:09)
--- NOTE | 2017-01-17 09:39 | XRay Report ---
Portable chest Exam date: 01/17/2017 4:00 AM Indication: Shortness of breath, cough Comparison: Previous day at 0516 hours Findings: Cardiomediastinal contours are stable. Defibrillator pad has been removed. Worsening interstitial and alveolar opacities bilaterally. No acute osseous abnormalities. Visualized upper abdomen demonstrates no acute pathology. Impression: Worsening pulmonary edema pattern PROCEDURE INTERPRETED AT [facility] DEPARTMENT OF RADIOLOGY Final Report Signed by: Francis Hoffmann
--- NOTE | 2017-01-17 11:03 | XRay Report ---
Portable chest Exam date: 01/17/2017 4:13 AM Indication: Shortness of breath, cough Comparison: Same date at 300 hours Findings: Cardiomediastinal contours are stable. Interval intubation with endotracheal tube at the ike. No change in the pulmonary edema pattern. No acute osseous abnormalities. Visualized upper abdomen demonstrates no acute pathology. Impression: 1. Satisfactory intubation with endotracheal tube at the ike 2. No change in the pulmonary edema pattern PROCEDURE INTERPRETED AT [facility] DEPARTMENT OF RADIOLOGY Final Report Signed by: Francis Hoffmann
--- NOTE | 2017-01-17 11:32 | XRay Report ---
Portable chest Exam date: 01/17/2017 458 AM Indication: Shortness of breath, cough Comparison: Same date at 300 hours Findings: Cardiomediastinal contours are stable with prominence the cardiac silhouette. Interval satisfactory intubation with ET tube at the level of the ike. Esophageal gastric tube has been placed in satisfactory position with distal tip extending off the lower border of the image. Slight improvement in the diffuse interstitial and alveolar opacities when compared with prior exam. No acute osseous abnormalities. Visualized upper abdomen demonstrates no acute pathology. Impression: 1. Satisfactory intubation and placement of esophageal gastric tube 2. Some degree of improvement in the pulmonary edema pattern PROCEDURE INTERPRETED AT [facility] DEPARTMENT OF RADIOLOGY Final Report Signed by: Francis Hoffmann
--- NOTE | 2017-01-17 15:41 | Hospitalist Progress Note ---
Hospitalist: Subjective Interval history: 51-year-old -Y[place] female with history of schizophrenia and substance abuse and now a recent diagnosis of HIV, pneumonia, developed respiratory failure and required intubation. She is comfortable on the vent. Exam - Constitutional Vitals: Period Temp Pulse Resp BP Sys/Molina Pulse Ox Last 24 Hr 97.6 F-99.6 F 77-126 12-44 76-143/49-84 82-100 Exam: General: No Acute Distress HEENT: Normocephalic, atraumatic, Extra ocular movements intact Neck: Supple, No JVD Chest: Clear to auscultation B/L CV: S1 + S2 audible without murmur, gallop or rub Abd: soft, NT, Non-distended, BS + Ext: No edema Skin: No purpura, bruising or rash Rheumatologic: No Joint deformities Results - Labs CBC & BMP: 01/17/17 02:47 01/17/17 02:47 - Impressions Pneumonia Status: Acute Assessment and plan: Suspected pneumocystis pneumonia bilateral lung infiltrates and history of HIV. Continue IV Bactrim and vancomycin Current Visit: Yes Sepsis Status: Acute Assessment and plan: On Levophed and IV fluid Current Visit: Yes Acute hypoxemic respiratory failure due to pneumonia Status: Acute Assessment and plan: She is on ventilator Current Visit: Yes HIV infection Status: Acute Assessment and plan: With suspected AIDS. ID consult next week Current Visit: Yes Schizophrenia Status: Acute Assessment and plan: She was on Prozac and Seroquel. Current Visit: Yes
[2017-01-17] MEDS: ENOXAPARIN 40 MG/0.4 ML SYRINGE SUBCUT SCH (17:17)
[2017-01-17] MEDS ORDERED: NOREPINEPHRINE 4 MG/4 ML VIAL IV ONE (19:50)
[2017-01-17] MEDS: AZITHROMYCIN INJ 500 MG in SODIUM CHLORIDE 0.9% 250 ML IV SCH (20:12)
[2017-01-17] MEDS: QUEtiapine XR 50 MG TABLET PO SCH (21:25)
[2017-01-18] MEDS: ALBUTEROL/IPRATROPIUM 3 ML NEB RESP TX SCH ×4 (00:12→19:06)
[2017-01-18] MEDS: PROPOFOL 1,000 MG/100 ML BOTTLE IV SCH ×4 (00:59→18:59)
[2017-01-18] MEDS: methylPREDNISolone SOD SUC 40 MG/1 ML VIAL IV SCH ×4 (01:42→18:07)
[2017-01-18] MEDS: NOREPINEPHRINE 8 MG in SODIUM CHLORIDE 0.9% 242 ML IV SCH (03:12)
[2017-01-18 04:03] LABS: Pt O2 Delivery Device Ventilator
[2017-01-18 04:06] LABS: ABG Base Excess -5.1 MMOL/L (-2.5-2.5); ABG HCO3 20.2 MMOL/L (20-26); ABG PCO2 37.3 MM HG (35-48); ABG TCO2 18.6 MMOL/L (23-27)
[2017-01-18] MEDS: SULFAMETH/TRIMETH INJ 300 MG in DEXTROSE 5% 500 ML IV SCH ×2 (04:24→11:28)
[2017-01-18 05:03] LABS: Hemoglobin 8.9 GM/DL (12.0-16.0); Immature Granulocytes % 2.1 %; Lymphocytes # 0.4 10*3/uL (1.4-4.0); Lymphocytes % 4.2 % (21.3-54.2); Mean Corpuscular HGB Conc 30.7 GM/DL (32-36); Mean Corpuscular Hemoglobin 23 PG (27-34); Mean Corpuscular Volume 73.2 FL (87-102); Mean Platelet Volume 11.4 FL (9.6-12.0); Monocytes # 0.1 10*3/uL (0.11-0.8); Monocytes % 1.5 % (1.7-12.7); NRBC # 0.03 10*3/uL; Neutrophils # 8.6 10*3/uL (1.4-7.4); Neutrophils % 92.2 % (38.7-73.9); Platelet Count 331 T/CUMM (130-400); Red Blood Count 3.96 MC/CUMM (3.8-5.5); Red Cell Distribution Width 20.9 % (9.3-17.3); White Blood Count 9.4 T/CUMM (4-12)
[2017-01-18] MEDS: MEROPENEM 1,000 MG in SODIUM CHLORIDE 0.9% 50 ML IV SCH (05:07)
[2017-01-18 05:22] LABS: Calcium 7.8 MG/DL (8.5-10.1); Magnesium 2.2 MG/DL (1.8-2.4); Osmolality,Calculated 278.8 MOS/KG (273-304); Potassium 5.2 MMOL/L (3.5-5.1)
[2017-01-18 05:31] LABS: Hypochromasia 2+; Lymphocytes 1 % (20-55); Microcytosis 1+; Nucleated Red Blood Cells 1 (0-5); Segmented Neutrophils 98 % (50-85); Total Cells Counted 100
[2017-01-18 05:32] LABS: Acanthocytes Few; Elliptocytes Few; Platelet Estimate Normal
[2017-01-18] MEDS: SODIUM CHLORIDE 0.9% 1,000 ML IV SCH ×3 (06:29→20:18)
--- NOTE | 2017-01-18 07:10 | Pulmonology Progress Note ---
Pulmonary - PN: Subj Interval history: The patient is a 51-year-old black lady that has recently been diagnosed with HIV infection. She has not had any treatment. She has a history of drug abuse and schizophrenia. She came in with a near syncopal event. She been having diarrhea and not eating very well. She was having SVT and shortness of breath. She does have bilateral infiltrates. She was intubated yesterday and is fairly stable on the ventilator. Her fever is better and her chest x-ray looks better. She has gram-negative rods on sputum. She is still on low-dose Levophed. Her urine output has been excellent. Her renal function is been okay. Her oxygenation has been good. Exam (Progress Note) - Constitutional Vitals: Period Temp Pulse Resp BP Sys/Molina Pulse Ox Last 24 Hr 97.4 F-98.2 F 75-91 12-16 77-134/50-88 91-100 Exam: General appearance: normal weight, she is sedated and comfortable on the ventilator. Her vital signs are stable. - Head Head exam: Present: normal inspection, normocephalic - Eye Eye exam: Present: EOMI. Absent: scleral icterus Pupils: Present: IRIS - ENT ENT exam: Present: ET tube is in good position. - Neck Neck exam: Absent: lymphadenopathy, meningismus, thyromegaly - Respiratory Respiratory exam: Present: She has good breath sounds bilaterally and moving air fairly well. Her lungs sound fairly clear now. - Cardiovascular Cardiovascular exam: Present: regular rate and rhythm. Absent: gallop, systolic murmur - GI/Abdominal GI/Abdominal exam: Present: normal bowel sounds, soft. Absent: organomegaly, tenderness - Extremities Exam Extremities exam: Absent: calf tenderness, edema - Neurological Exam Neurological exam: Present: She is sedated on the ventilator at present. - Psychiatric Psychiatric exam: Absent: anxious - Skin Skin exam: Present: warm, dry Results - Labs CBC & BMP: 01/18/17 04:38 01/18/17 04:38 Labs: Her PO2 is 175 with a PCO2 of 37 and pH of 7.34 - Diagnostic Findings Procedure: Chest x-ray: image reviewed by me, report reviewed by me (Chest x- ray is much clearer) Assessment and Plan (1) History of schizophrenia Status: Acute Assessment and plan: The patient apparently takes Prozac and Seroquel. Current Visit: Yes (2) Pneumonitis Status: Acute Assessment and plan: Patient does have bilateral infiltrates and could possibly have pneumocystis. Specimens are being collected and she is on IV Bactrim along with vancomycin. She did diurese a little also. Her chest x-ray is improving and her oxygenation is much better also. Current Visit: Yes (3) Acute HIV infection Status: Acute Assessment and plan: She will be followed by ID Current Visit: Yes (4) Sepsis Status: Acute Assessment and plan: Her blood pressure and heart rate are better at present. She is on low-dose Levophed after giving sedation. She is still getting IV fluids. She does look more comfortable and hemodynamically stable. Current Visit: Yes
--- NOTE | 2017-01-18 07:43 | XRay Report ---
History: Shortness of breath Date: 01/18/2017 Study: Chest x-ray AP portable Comparison exam: 01/17/2017 The endotracheal and nasogastric tubes remain in generally stable position. There is borderline cardiomegaly. The mediastinal contours are stable. Hazy edema/infiltrate in either mid to lower lung persists, though this is improved. There is no new or worsening infiltrate. There is no gross pleural effusion of significance. There is no pneumothorax. Osseous structures are similar. Impression: Improving bibasilar pulmonary edema/infiltrate in the lower lungs compared to the previous day. Otherwise unchanged PROCEDURE INTERPRETED AT [facility] DEPARTMENT OF RADIOLOGY Final Report Signed by: Dr. Gertrude Garcia
[2017-01-18] MEDS: FLUoxetine 20 MG CAPSULE PO SCH (08:49)
[2017-01-18] MEDS: PANTOPRAZOLE 40 MG VIAL IV SCH (08:53)
[2017-01-18] MEDS: VANCOMYCIN INJ 1,000 MG in SODIUM CHLORIDE 0.9% 250 ML IV SCH (09:51)
--- NOTE | 2017-01-18 11:07 | Hospitalist Progress Note ---
Hospitalist: Subjective Interval history: 51-year-old -Guyanese female with history of schizophrenia and substance abuse and now a recent diagnosis of HIV, developed respiratory failure due to pneumonia and is on ventilator. She is comfortable on the vent. Exam - Constitutional Vitals: Period Temp Pulse Resp BP Sys/Molina Pulse Ox Last 24 Hr 97.4 F-97.6 F 75-98 12-23 77-134/50-88 96-100 Exam: General: No Acute Distress HEENT: Normocephalic, atraumatic, Extra ocular movements intact Neck: Supple, No JVD Chest: Clear to auscultation B/L CV: S1 + S2 audible without murmur, gallop or rub Abd: soft, NT, Non-distended, BS + Ext: No edema Skin: No purpura, bruising or rash Rheumatologic: No Joint deformities Results - Labs CBC & BMP: 01/18/17 04:38 01/18/17 04:38 - Impressions Assessment and Plan: Pneumonia Status: Acute Assessment and plan: Suspected pneumocystis pneumonia bilateral lung infiltrates and history of HIV. Continue IV Bactrim and vancomycin Current Visit: Yes Sepsis Status: Acute Assessment and plan: On Levophed and IV fluid Current Visit: Yes Acute hypoxemic respiratory failure due to pneumonia Status: Acute Assessment and plan: She is on ventilator Current Visit: Yes HIV infection Status: Acute Assessment and plan: With suspected AIDS. ID consulted Current Visit: Yes Schizophrenia Status: Acute Assessment and plan: She was on Prozac and Seroquel. Current Visit: Yes Hyperkalemia Status: Acute Assessment and plan: This is mild, likely due to Bactrim, monitor Current Visit: Yes Nutrition: She is getting Jevity 1.5 via tube feed
--- NOTE | 2017-01-18 12:09 | Infectious Disease Consult ---
Assessment and Plan (1) HIV disease Status: Acute Assessment and plan: Possible advanced immune suppression given how ill patient is on the vent. CD4 count pending. Recommendations: 1. Await pending studies 2. Discussed with patient's daughters [were already were aware of the diagnosis ] the diagnosis and prognosis for the patient. Ultimately she will need to enroll in a [facility] clinic for her antiretroviral therapy. Questions answered. Thank you very much for the consult. Will follow. Current Visit: Yes (2) History of schizophrenia Status: Acute Current Visit: Yes (3) Pneumonitis Status: Acute Assessment and plan: Patient had significant hypoxemia on admission and atypical pneumonia picture on chest x-ray. Pneumocystis is very likely. The chest x-ray did get significantly better since admission given suspicion for possible pulmonary edema as well. Recommendations: 1. Agree with empiric Bactrim but decrease the dose to 5 mg/kg trimethoprim component every 8 hours. Also agree with steroids given the significant hypoxemia on admission. 2. Discontinue vancomycin and meropenem. 3. Add ceftriaxone 1 g daily, to cover the Proteus that was isolated 4. Send sputum for silver stain to check with PCP Current Visit: Yes History of Present Illness Chief complaint: HIV, newly diagnosed History of present illness: Ms. Vu is a 51 year old female who is been in declining health for the past 3 weeks. Increasingly weak having cough and shortness of breath. Also posttussive vomiting. Not much sputum production. No hemoptysis. She had subjective fevers and sweats. Patient has been seeking medical intervention intermittently and got different prescriptions but she never felt better. 3 days prior to this admission she found out that an HIV test came back positive. She came in on this occasion because of syncopal episode. On admission she was found to have oxygen saturation of 85% and an abnormal chest x-ray. She developed respiratory failure and had to be intubated and is now on the vent. She had fever more than 1012 days ago but it has not persisted. I am asked to assist with management of HIV and pneumonia. Home Medications Medication Instructions Recorded Confirmed Type Fluoxetine HCl [Prozac] 40 mg PO DAILY 10/16/14 01/15/17 History HydrOXYzine PAMOATE CAP [Vistaril 50 mg PO TID PRN 10/16/14 01/15/17 History Cap] QUEtiapine XR [SEROquel XR] 450 mg PO BEDTIME 10/16/14 01/15/17 History Allergies Allergy/AdvReac Type Severity Reaction Status Date / Time No Known Allergies Allergy Verified 01/06/17 12:01 ROS unobtainable: due to endotracheal tube Medical,Surgical,& Family Hx - Medical History Cardio: No history of: Hypertension Psychological: History of: Anxiety Disorders, Depression, Schizophrenia Endocrine: No history of: Diabetes Mellitus (IDDM), Diabetes Mellitus (NIDDM) Respiratory: No history of: Asthma, Bronchitis, Pneumonia Renal: No history of: Renal Problems Gastrointestinal: History of: GERD No history of: Gastrointestinal Bleed, Liver Problems, GI Problems Musculoskeletal: History of: Back/Neck Problems Reproductive: History of: Sexually Transmitted Disorders (HIV) Other: History of: HIV - Surgical History Abdominal Surgeries: Surgical HX of: Cholecystectomy Reproductive Surgeries: Surgical HX of;: Hysterectomy, Tubal Ligation - Family History Family History: Reports;: Family Hypertension, Family Stroke - Social History Smoking Status: Never smoker Frequency of Alcohol Use: None Type of Drug Use: None Infectious Disease Exam H&P - Constitutional Vitals: Vital Signs Temp Pulse Resp BP Pulse Ox 97.2 F L 83 29 H 103/68 96 01/18/17 11:53 01/18/17 11:53 01/18/17 11:53 01/18/17 11:53 01/18/17 11:53 Intake and Output 01/17/17 01/18/17 01/18/17 23:59 07:59 15:59 Intake Total 2233.75 / 2233.75 1367.50 / 1367.50 268 / 268 Output Total 570 / 570 675 / 675 635 / 635 Balance 1663.75 / 1663.75 692.50 / 692.50 -367 / -367 Intake: IV 2213.75 / 2213.75 1327.50 / 1327.50 48 / 48 Zithromax Inj 500 mg In 250 / 250 Ns 250 ml @ 250 mls/hr IV Q24H [facility] Rx#:[id number] Merrem 1,000 mg In Ns 50 100 / 100 50 / 50 ml @ 100 mls/hr IV Q8H [facility] Rx#:[id number] Levophed 8 mg In Ns 242 0 / 0 40 / 40 ml @ 2 MCG/MIN 3.75 mls/ hr IV TITRATE [facility]O Rx#: [id number] DIPRIVAN 1,000 mg In 100 95 / 95 200 / 200 48 / 48 ml @ 10 MCG/KG/MIN 4.139 mls/hr IV TITRATE [facility]O Rx# :[id number] Ns 1,000 ml @ 100 mls/hr 1000 / 1000 IV .Q10H [facility]O Rx#: [id number] Bactrim Inj 300 mg In D5 518.75 / 518.75 1037.50 / 1037.50 500 ml @ 333 mls/hr IV Q6H [facility]O Rx#:[id number] Vancomycin Inj 1,000 mg 250 / 250 In Ns 250 ml @ 250 mls/hr IV Q12H [facility]O Rx#: [id number] Oral 180 / 180 Tube Feeding Flush 20 / 20 40 / 40 40 / 40 Output: Urine 570 / 570 675 / 675 635 / 635 Other: Tube Feeding 10 10 20 Voiding Method Indwelling Catheter Indwelling Catheter Indwelling Catheter Weight 71.486 kg Patient Weight 01/18/17 23:59 Weight 71.486 kg Exam: General: Patient relatively comfortable on the vent, she is interactive and trying to communicate with writing HEENT: Mucous membranes pink and moist, anicteric acyanotic, IRIS, ET tube in situ Neck: Supple, no thyroid gland enlargement, no lymphadenopathy Respiratory system: Breath sounds vesicular, no crepitations or wheezes Cardiovascular: Normal S1 and S2, no murmurs appreciated Abdomen: Normal bowel sounds, soft nontender throughout, no organomegaly or mass Genitourinary: No suprapubic pain or bladder distention, clear urine from Maxwell catheter Extremities: no edema Skin: No rash but postinflammatory hyperpigmented macules scattered over body Reports - Labs CBC & BMP: 01/18/17 04:38 01/18/17 04:38 Labs: Laboratory Results - last 24 hr 01/15/17 01/17/17 01/18/17 15:08 18:38 03:50 WBC RBC Hgb Hct MCV MCH MCHC RDW Plt Count MPV Neut % (Auto) Lymph % (Auto) [place] % (Auto) Eos % (Auto) Baso % (Auto) Neut # (Auto) Lymph # (Auto) [place] # (Auto) Eos # (Auto) Baso # (Auto) Total Counted Immature Gran % Nucleated RBC % Immature Gran # Segmented Neutrophils Lymphocytes Monocytes Nucleated RBCs Nucleated RBCs # Platelet Estimate Immature Plt Fraction Hypochromasia Microcytosis Elliptocytes Acanthocytes (Spur) ABG pH 7.340 L ABG pCO2 37.3 ABG pO2 175.0 H ABG HCO3 20.2 ABG Total CO2 18.6 L ABG O2 Saturation 99.0 ABG Base Excess -5.1 L FiO2 60.00 Sodium Potassium Chloride Carbon Dioxide Anion Gap BUN Creatinine GFR Calculation BUN/Creatinine Ratio Glucose Calculated Osmolality Calcium Magnesium Vancomycin Trough 16.8 HIV 1&2 Antigen & Ab Reactive A 01/18/17 01/18/17 04:38 04:38 WBC 9.4 D RBC 3.96 Hgb 8.9 L Hct 29.0 L MCV 73.2 L MCH 23 L MCHC 30.7 L RDW 20.9 H Plt Count 331 MPV 11.4 Neut % (Auto) 92.2 H Lymph % (Auto) 4.2 L [place] % (Auto) 1.5 L Eos % (Auto) 0.0 Baso % (Auto) 0.0 Neut # (Auto) 8.6 H Lymph # (Auto) 0.4 L [place] # (Auto) 0.1 L Eos # (Auto) 0.0 Baso # (Auto) 0.0 Total Counted 100 Immature Gran % 2.1 Nucleated RBC % 0.3 Immature Gran # 0.20 Segmented Neutrophils 98 H Lymphocytes 1 L Monocytes 1 L Nucleated RBCs 1 Nucleated RBCs # 0.03 Platelet Estimate Normal Immature Plt Fraction 0.0 Hypochromasia 2+ Microcytosis 1+ Elliptocytes Few Acanthocytes (Spur) Few ABG pH ABG pCO2 ABG pO2 ABG HCO3 ABG Total CO2 ABG O2 Saturation ABG Base Excess FiO2 Sodium 137 Potassium 5.2 H Chloride 109 H Carbon Dioxide 19 L Anion Gap 14.2 BUN 8 Creatinine 1.00 GFR Calculation 75 BUN/Creatinine Ratio 8.00 Glucose 242 H Calculated Osmolality 278.8 Calcium 7.8 L Magnesium 2.2 Vancomycin Trough HIV 1&2 Antigen & Ab - Reports Microbiology: Microbiology 01/16/17 06:18 Sputum Culture - Final Sputum Proteus mirabilis Gram Stain - Final 01/15/17 19:23 MRSA Surveillance Culture - Final Nares No MRSA isolated. 01/15/17 Unknown Urine Culture - Final Urine,Catheterized No Growth at 48 hours. - Diagnostic Findings Procedure: Chest x-ray: image reviewed by me, report reviewed by me ( Significantly increased interstitial markings on admission but today x-ray looks much better; there was never any definite consolidation)
[2017-01-18] MEDS ORDERED: GLUCAGON 1 MG VIAL IM PRN (13:54)
[2017-01-18] MEDS ORDERED: DEXTROSE 50% 25 GM/50 ML VIAL IV PRN (13:54)
[2017-01-18] MEDS ORDERED: TRIMETH IV SCH (14:00)
[2017-01-18] MEDS ORDERED: DEXTROSE 50% 25 GM/50 ML SYRINGE IV PRN (14:00)
[2017-01-18] MEDS ORDERED: SULFAMETH IV SCH (14:00)
[2017-01-18] MEDS ORDERED: DEXTROSE 5% IV SCH (14:00)
[2017-01-18] MEDS: SULFAMETH IV SCH (16:23)
[2017-01-18] MEDS: ENOXAPARIN 40 MG/0.4 ML SYRINGE SUBCUT SCH (16:23)
[2017-01-18] MEDS: DEXTROSE 5% IV SCH (16:23)
[2017-01-18] MEDS: TRIMETH IV SCH (16:23)
[2017-01-18] MEDS: INSULIN REGULAR 100 UNIT/ML SUBCUT SCH ×2 (18:07→23:31)
[2017-01-18] MEDS: QUEtiapine XR 50 MG TABLET PO SCH (20:32)
[2017-01-19] MEDS: ALBUTEROL/IPRATROPIUM 3 ML NEB RESP TX SCH ×4 (00:30→19:24)
[2017-01-19] MEDS: SODIUM CHLORIDE 0.9% 1,000 ML IV SCH ×2 (01:50→17:18)
[2017-01-19] MEDS: NOREPINEPHRINE 8 MG in SODIUM CHLORIDE 0.9% 242 ML IV SCH (01:51)
[2017-01-19] MEDS: DEXTROSE 5% IV SCH ×3 (01:55→19:27)
[2017-01-19] MEDS: SULFAMETH IV SCH ×3 (01:55→19:27)
[2017-01-19] MEDS: TRIMETH IV SCH ×3 (01:55→19:27)
[2017-01-19] MEDS: methylPREDNISolone SOD SUC 40 MG/1 ML VIAL IV SCH ×4 (02:00→19:28)
[2017-01-19] MEDS: PROPOFOL 1,000 MG/100 ML BOTTLE IV SCH ×5 (02:02→23:40)
[2017-01-19 03:12] LABS: ABG Base Excess -5.1 MMOL/L (-2.5-2.5); ABG Oxygen Saturation 86.8 % (95-100); ABG PCO2 34.9 MM HG (35-48); ABG PH 7.361 (7.35-7.45); ABG PO2 56.4 MM HG (80-95); ABG TCO2 18.4 MMOL/L (23-27); Allen Test Positive; Pt O2 Delivery Device Ventilator
[2017-01-19 04:49] LABS: Phosphorous 3.6 MG/DL (2.5-4.9); Prealbumin 37.3 MG/DL (20-40)
[2017-01-19] MEDS: INSULIN REGULAR 100 UNIT/ML SUBCUT SCH ×3 (06:18→19:32)
--- NOTE | 2017-01-19 07:27 | Pulmonology Progress Note ---
Pulmonary - PN: Subj Interval history: The patient is a 51-year-old black lady that has recently been diagnosed with HIV infection. She has not had any treatment. She has a history of drug abuse and schizophrenia. She came in with a near syncopal event. She been having diarrhea and not eating very well. She was having SVT and shortness of breath. She does have bilateral infiltrates. She was intubated and placed on the ventilator. She has done fairly well over the past few days. She is not having any fever. Her chest x-ray has improved and her lung compliance is okay. Her PO2 is a little low this morning but her O2 saturations are okay. She did do some CPAP yesterday. Overall she is tolerating her medications. Exam (Progress Note) - Constitutional Vitals: Period Temp Pulse Resp BP Sys/Molina Pulse Ox Last 24 Hr 97.2 F-97.7 F 79-100 13-31 90-129/55-81 92-100 Exam: General appearance: normal weight, she is sedated and comfortable on the ventilator. Her vital signs are stable. - Head Head exam: Present: normal inspection, normocephalic - Eye Eye exam: Present: EOMI. Absent: scleral icterus Pupils: Present: IRIS - ENT ENT exam: Present: ET tube is in good position. - Neck Neck exam: Absent: lymphadenopathy, meningismus, thyromegaly - Respiratory Respiratory exam: Present: She has good breath sounds bilaterally and moving air fairly well. Her lungs sound fairly clear now. She has fairly good lung compliance. - Cardiovascular Cardiovascular exam: Present: regular rate and rhythm. Absent: gallop, systolic murmur - GI/Abdominal GI/Abdominal exam: Present: normal bowel sounds, soft. Absent: organomegaly, tenderness - Extremities Exam Extremities exam: Absent: calf tenderness, edema - Neurological Exam Neurological exam: Present: She is sedated on the ventilator at present. - Psychiatric Psychiatric exam: Absent: anxious - Skin Skin exam: Present: warm, dry Results - Labs CBC & BMP: 01/18/17 04:38 01/18/17 04:38 Labs: Her PO2 is 56 with a PCO2 34 and a pH of 7.36. Assessment and Plan (1) History of schizophrenia Status: Acute Assessment and plan: The patient apparently takes Prozac and Seroquel. Current Visit: Yes (2) Pneumonitis Status: Acute Assessment and plan: Patient does have bilateral infiltrates and could possibly have pneumocystis. Specimens are being collected and she is on IV Bactrim along with vancomycin. She did diurese a little also. Her chest x-ray is improving. Will continue CPAP trials and try to extubate in a day or 2. Current Visit: Yes (3) Acute HIV infection Status: Acute Assessment and plan: She will be followed by ID Current Visit: Yes (4) Sepsis Status: Acute Assessment and plan: Her blood pressure and heart rate are better at present. She is off pressors and is fairly stable. Current Visit: Yes
[2017-01-19] MEDS: PANTOPRAZOLE 40 MG VIAL IV SCH (08:35)
[2017-01-19] MEDS: FLUoxetine 20 MG CAPSULE PO SCH (08:35)
--- NOTE | 2017-01-19 14:08 | Infectious Disease Progress ---
Assessment and Plan (1) HIV disease Status: Acute Assessment and plan: Possible advanced immune suppression given how ill patient is on the vent. CD4 count and other labs pending. Current Visit: Yes (2) History of schizophrenia Status: Acute Current Visit: Yes (3) Pneumonitis Status: Acute Assessment and plan: Patient had significant hypoxemia on admission and atypical pneumonia picture on chest x-ray. Pneumocystis is very likely. There may have been pulmonary edema as well. Recommendations: 1. Continue empiric Bactrim but decrease the dose to 5 mg/kg trimethoprim component every 8 hours. Also agree with steroids given the significant hypoxemia on admission. 2. Continue ceftriaxone 1 g daily, to cover the Proteus that was isolated 3. Follow-up results of sputum silver stain sent this morning Current Visit: Yes Infectious Disease - PN: Subj Interval history: Patient indicated that she was feeling okay when I saw this morning. No acute issues overnight. She has been afebrile. Daughter voiced no concerns Infectious Disease Exam (PN) - Constitutional Vitals: Temp Pulse Resp BP Pulse Ox 97.2 F L 102 H 31 H 100/45 91 L 01/19/17 04:00 01/19/17 13:15 01/19/17 13:15 01/19/17 13:15 01/19/17 13:15 General appearance: normal weight Exam: General appearance: Comfortable on the vent, interactive, follows simple commands - Eye Eye exam: Present: EOMI. no icterus Pupils: Present: IRIS - ENT ENT exam: ET tube in situ - Respiratory Respiratory exam: vesicular BS, no crepitations or wheezes - Cardiovascular Cardiovascular exam: regular rate and rhythm, no murmurs - GI/Abdominal GI/Abdominal exam: normal bowel sounds, soft, non-tender, no organomegaly or mass - Extremities Exam Extremities exam: no edema - Skin Skin exam: no rash Results - Labs CBC & BMP: 01/18/17 04:38 01/18/17 04:38 Lab Results: I have reviewed the past 24 hour labs
--- NOTE | 2017-01-19 14:40 | Hospitalist Progress Note ---
Hospitalist: Subjective Interval history: 51-year-old -[place] female with history of schizophrenia and substance abuse and now a recent diagnosis of HIV, developed respiratory failure due to pneumonia and is on ventilator. She is comfortable on the vent. Exam - Constitutional Vitals: Period Temp Pulse Resp BP Sys/Molina Pulse Ox Last 24 Hr 96.3 F-97.7 F 79-102 12-36 92-129/45-81 90-100 Exam: General: No Acute Distress HEENT: Normocephalic, atraumatic, Extra ocular movements intact Neck: Supple, No JVD Chest: Clear to auscultation B/L CV: S1 + S2 audible without murmur, gallop or rub Abd: soft, NT, Non-distended, BS + Ext: No edema Skin: No purpura, bruising or rash Rheumatologic: No Joint deformities Results - Labs CBC & BMP: 01/18/17 04:38 01/18/17 04:38 - Impressions Assessment and Plan: Pneumonia Status: Acute Assessment and plan: Suspected pneumocystis pneumonia bilateral lung infiltrates and history of HIV. Continue IV Bactrim and Rocephin Current Visit: Yes Sepsis Status: Acute Assessment and plan: On Levophed and IV fluid Current Visit: Yes Acute hypoxemic respiratory failure due to pneumonia Status: Acute Assessment and plan: She is on ventilator, and is getting CPAP trial Current Visit: Yes HIV infection Status: Acute Assessment and plan: With suspected AIDS. Current Visit: Yes Schizophrenia Status: Acute Assessment and plan: She was on Prozac and Seroquel. Current Visit: Yes Hyperkalemia Status: Acute Assessment and plan: This is mild, likely due to Bactrim, improving Current Visit: Yes Nutrition: She is getting Jevity 1.5 via tube feed
[2017-01-19] MEDS: ENOXAPARIN 40 MG/0.4 ML SYRINGE SUBCUT SCH (17:11)
[2017-01-19] MEDS: POLYETHYLENE GLYCOL POWDER 17 GM PACK PO SCH (17:17)
[2017-01-19] MEDS: DOCUSATE SODIUM 100 MG/10 ML UDCUP PO SCH (23:40)
[2017-01-19] MEDS: QUEtiapine XR 50 MG TABLET PO SCH (23:40)
[2017-01-20] MEDS: ALBUTEROL/IPRATROPIUM 3 ML NEB RESP TX SCH ×4 (00:26→20:12)
[2017-01-20 03:23] LABS: ABG Base Excess -5.2 MMOL/L (-2.5-2.5); ABG Oxygen Saturation 90.2 % (95-100); ABG PCO2 37.3 MM HG (35-48); ABG PH 7.339 (7.35-7.45); ABG TCO2 18.7 MMOL/L (23-27); Allen Test Positive; Pt O2 Delivery Device Ventilator
[2017-01-20] MEDS: PROPOFOL 1,000 MG/100 ML BOTTLE IV SCH ×6 (04:25→21:53)
[2017-01-20] MEDS: INSULIN REGULAR 100 UNIT/ML SUBCUT SCH ×5 (04:40→23:19)
[2017-01-20] MEDS: TRIMETH IV SCH ×3 (04:40→17:47)
[2017-01-20] MEDS: SULFAMETH IV SCH ×3 (04:40→17:47)
[2017-01-20] MEDS: DEXTROSE 5% IV SCH ×3 (04:40→17:47)
[2017-01-20] MEDS: SODIUM CHLORIDE 0.9% 1,000 ML IV SCH ×2 (04:40→06:55)
[2017-01-20] MEDS: methylPREDNISolone SOD SUC 40 MG/1 ML VIAL IV SCH ×4 (04:41→18:32)
[2017-01-20] MEDS: NOREPINEPHRINE 8 MG in SODIUM CHLORIDE 0.9% 242 ML IV SCH (04:41)
[2017-01-20 05:05] LABS: Basophils % 0.2 % (0.0-0.8); Hematocrit 29.6 VOL% (35.7-47.0); Immature Granulocytes % 2.9 %; Immature Granulocytes Absolute 0.17 #; Lymphocytes # 0.3 10*3/uL (1.4-4.0); Lymphocytes % 4.6 % (21.3-54.2); Mean Corpuscular HGB Conc 33.8 GM/DL (32-36); Mean Corpuscular Hemoglobin 24 PG (27-34); Mean Corpuscular Volume 71.5 FL (87-102); Monocytes # 0.1 10*3/uL (0.11-0.8); Monocytes % 1.4 % (1.7-12.7); NRBC # 0.02 10*3/uL; Neutrophils # 5.4 10*3/uL (1.4-7.4); Neutrophils % 90.9 % (38.7-73.9); Platelet Count 289 T/CUMM (130-400); Red Blood Count 4.14 MC/CUMM (3.8-5.5); White Blood Count 5.9 T/CUMM (4-12)
[2017-01-20 06:05] LABS: Calcium 7.6 MG/DL (8.5-10.1); Osmolality,Calculated 271.1 MOS/KG (273-304); Potassium 4.7 MMOL/L (3.5-5.1)
[2017-01-20 06:41] LABS: Pneumocystis jiroveci Source SPUTUM
[2017-01-20 06:51] LABS: Pneumocystis jiroveci Result Positive
[2017-01-20 07:41] LABS: Burr Cells 2+; Hypochromasia 2+; Lymphocytes 8 % (20-55); Platelet Estimate Adequate; Segmented Neutrophils 89 % (50-85); Total Cells Counted 100
--- NOTE | 2017-01-20 08:18 | XRay Report ---
Exam: XR chest 1V portable Date: 01/20/2017 4:00 AM Indication: Follow-up ventilator respiratory failure Comparison: 01/18/2017 Technical: AP Findings: Endotracheal tube nasogastric tube are present. Mild cardiomegaly. Patchy infiltrates are present in the perihilar regions and basilar regions left greater than right with tiny low volume left effusion. Impression: 1. Stable appearance of the tubing 2. Cardiomegaly with low volume effusions and infiltrates. PROCEDURE INTERPRETED AT [facility] DEPARTMENT OF RADIOLOGY Final Report Signed by: Dr. Khanh Medina
--- NOTE | 2017-01-20 08:43 | Pulmonology Progress Note ---
Pulmonary - PN: Subj Interval history: The patient is a 51-year-old black lady that has recently been diagnosed with HIV infection. She has not had any treatment. She has a history of drug abuse and schizophrenia. She came in with a near syncopal event. She been having diarrhea and not eating very well. She was having SVT and shortness of breath. She does have bilateral infiltrates. She was intubated and placed on the ventilator. She has done fairly well over the past few days. However her oxygenation is not as good as she still has some mild infiltrates. She is off pressors. Her chest x-ray does look a little worse today. She has normal renal function. She does have a positive sputum for pneumocystis. She responds and is fairly stable . Exam (Progress Note) - Constitutional Vitals: Period Temp Pulse Resp BP Sys/Molina Pulse Ox Last 24 Hr 97.2 F-98.6 F 74-102 12-36 97-127/45-87 90-100 Exam: General appearance: normal weight, she is sedated and comfortable on the ventilator. Her vital signs are stable. - Head Head exam: Present: normal inspection, normocephalic - Eye Eye exam: Present: EOMI. Absent: scleral icterus Pupils: Present: IRIS - ENT ENT exam: Present: ET tube is in good position. - Neck Neck exam: Absent: lymphadenopathy, meningismus, thyromegaly - Respiratory Respiratory exam: Present: She has good breath sounds bilaterally and moving air fairly well. She does have some crackles bilaterally. - Cardiovascular Cardiovascular exam: Present: regular rate and rhythm. Absent: gallop, systolic murmur - GI/Abdominal GI/Abdominal exam: Present: normal bowel sounds, soft. Absent: organomegaly, tenderness - Extremities Exam Extremities exam: Absent: calf tenderness, edema - Neurological Exam Neurological exam: Present: She is sedated on the ventilator at present. - Psychiatric Psychiatric exam: Absent: anxious - Skin Skin exam: Present: warm, dry Results - Labs CBC & BMP: 01/20/17 04:15 01/20/17 04:15 Labs: Her PO2 is 66 with a PCO2 of 37 and pH of 7.33 - Diagnostic Findings Procedure: Chest x-ray: image reviewed by me, report reviewed by me (Chest x- ray does show some slight increased infiltrates in the left.) Assessment and Plan (1) History of schizophrenia Status: Acute Assessment and plan: The patient apparently takes Prozac and Seroquel. Current Visit: Yes (2) Pneumonitis Status: Acute Assessment and plan: Patient does have bilateral infiltrates and her sputum is positive for pneumocystis. She is getting IV Bactrim and steroids. Chest x-ray looks a little wet today. We will try to diurese a little. Current Visit: Yes (3) Acute HIV infection Status: Acute Assessment and plan: She will be followed by ID Current Visit: Yes (4) Sepsis Status: Acute Assessment and plan: Her blood pressure and heart rate are better at present. She is off pressors and is fairly stable. Will cut back on her IV fluids. Current Visit: Yes
[2017-01-20] MEDS ORDERED: FUROSEMIDE 20 MG/2 ML VIAL IV ONE (08:45)
[2017-01-20] MEDS: DOCUSATE SODIUM 100 MG/10 ML UDCUP PO SCH ×2 (09:00→21:12)
[2017-01-20] MEDS: PANTOPRAZOLE 40 MG VIAL IV SCH (09:00)
[2017-01-20] MEDS: FLUoxetine 20 MG CAPSULE PO SCH (09:01)
--- NOTE | 2017-01-20 09:31 | Hospitalist Progress Note ---
Hospitalist: Subjective Interval history: 51-year-old -[place] female with history of schizophrenia and substance abuse and now a recent diagnosis of HIV, developed respiratory failure due to pneumonia and is on ventilator. She is comfortable on the vent. Exam - Constitutional Vitals: Period Temp Pulse Resp BP Sys/Molina Pulse Ox Last 24 Hr 97.2 F-98.6 F 74-102 12-36 97-127/45-87 90-100 Exam: General: No Acute Distress HEENT: Normocephalic, atraumatic, Extra ocular movements intact Neck: Supple, No JVD Chest: Clear to auscultation B/L CV: S1 + S2 audible without murmur, gallop or rub Abd: soft, NT, Non-distended, BS + Ext: No edema Skin: No purpura, bruising or rash Rheumatologic: No Joint deformities Results - Labs CBC & BMP: 01/20/17 04:15 01/20/17 04:15 - Impressions Assessment and Plan: PCP Pneumonia/Proteus Pneumonia Status: Acute Assessment and plan: Suspected pneumocystis pneumonia bilateral lung infiltrates and history of HIV. Continue IV Bactrim for PCP and Rocephin for Proteus Current Visit: Yes Sepsis Status: Acute Assessment and plan: On Levophed and IV fluid Current Visit: Yes Acute hypoxemic respiratory failure due to pneumonia Status: Acute Assessment and plan: She is on ventilator, and is getting CPAP trial Current Visit: Yes HIV/AIDS Status: Acute Assessment and plan: PCP Pneumonia is AIDS defining Current Visit: Yes Schizophrenia Status: Acute Assessment and plan: She was on Prozac and Seroquel. Current Visit: Yes Hyperkalemia Status: Acute Assessment and plan: Resolved Current Visit: Yes Nutrition: She is getting Jevity 1.5 via tube feed
[2017-01-20] MEDS: POLYETHYLENE GLYCOL POWDER 17 GM PACK PO SCH (09:34)
--- NOTE | 2017-01-20 11:02 | Infectious Disease Progress ---
Assessment and Plan (1) HIV disease Status: Acute Assessment and plan: AIDS given confirmation of pneumocystis pneumonia which is an AIDS defining illness. CD4 count and other labs pending. Current Visit: Yes (2) History of schizophrenia Status: Acute Current Visit: Yes (3) Pneumonitis Status: Acute Assessment and plan: PCP pneumonia confirmed. Proteus was also isolated from the sputum culture. Recommendations: Complete 5 days of ceftriaxone therapy for the Proteus thus 2 more days to go after today. Current Visit: Yes (4) PCP (pneumocystis jiroveci pneumonia) Status: Acute Assessment and plan: PCP confirmed with positive PCR. Recommendations: Continue with Bactrim and steroids. Family informed of this result. Treatment duration will be 3 weeks however when patient gets extubated will be able to switch to oral therapy. Current Visit: Yes Infectious Disease - PN: Subj Interval history: Patient doing fair, she still arousable and follows commands. She has not had any fever. Had a little bit of diarrhea but she was getting to stool softeners and those have been stopped. Infectious Disease Exam (PN) - Constitutional Vitals: Temp Pulse Resp BP Pulse Ox 97.4 F L 89 29 H 119/78 97 01/20/17 08:19 01/20/17 10:32 01/20/17 10:32 01/20/17 10:32 01/20/17 10:32 General appearance: normal weight Exam: General appearance: Comfortable on the vent, easily arousable - Eye Eye exam: Present: EOMI. no icterus Pupils: Present: IRIS - ENT ENT exam: ET tube in situ - Respiratory Respiratory exam: vesicular BS, no crepitations or wheezes - Cardiovascular Cardiovascular exam: regular rate and rhythm, no murmurs - GI/Abdominal GI/Abdominal exam: normal bowel sounds, soft, non-tender, no organomegaly or mass - Extremities Exam Extremities exam: no edema - Skin Skin exam: no rash Results - Labs CBC & BMP: 01/20/17 04:15 01/20/17 04:15 Lab Results: I have reviewed the past 24 hour labs (Sputum positive for pneumocystis by PCR)
[2017-01-20] MEDS: ENOXAPARIN 40 MG/0.4 ML SYRINGE SUBCUT SCH (17:47)
[2017-01-20] MEDS ORDERED: POLYETHYLENE GLYCOL POWDER 17 GM PACK PO PRN (19:32)
[2017-01-20] MEDS ORDERED: DOCUSATE SODIUM 100 MG/10 ML UDCUP PO PRN (21:11)
[2017-01-20] MEDS: QUEtiapine XR 50 MG TABLET PO SCH (21:34)
[2017-01-21] MEDS: ALBUTEROL/IPRATROPIUM 3 ML NEB RESP TX SCH ×4 (00:11→19:42)
[2017-01-21] MEDS: DEXTROSE 5% IV SCH ×3 (02:05→18:01)
[2017-01-21] MEDS: SULFAMETH IV SCH ×3 (02:05→18:01)
[2017-01-21] MEDS: TRIMETH IV SCH ×3 (02:05→18:01)
[2017-01-21] MEDS: methylPREDNISolone SOD SUC 40 MG/1 ML VIAL IV SCH ×4 (02:05→20:46)
[2017-01-21] MEDS: PROPOFOL 1,000 MG/100 ML BOTTLE IV SCH ×3 (02:10→21:12)
[2017-01-21 02:48] LABS: Pt O2 Delivery Device Ventilator
[2017-01-21 02:49] LABS: ABG Base Excess -4.8 MMOL/L (-2.5-2.5); ABG HCO3 20.4 MMOL/L (20-26); ABG Oxygen Saturation 96.8 % (95-100); ABG PCO2 38.1 MM HG (35-48); ABG PH 7.339 (7.35-7.45)
[2017-01-21] MEDS: NOREPINEPHRINE 8 MG in SODIUM CHLORIDE 0.9% 242 ML IV SCH (04:28)
[2017-01-21] MEDS: INSULIN REGULAR 100 UNIT/ML SUBCUT SCH ×4 (06:18→23:37)
[2017-01-21 06:24] LABS: Hematocrit 29.3 VOL% (35.7-47.0); Hemoglobin 9.1 GM/DL (12.0-16.0); Immature Granulocytes % 5.6 %; Immature Granulocytes Absolute 0.23 #; Lymphocytes # 0.2 10*3/uL (1.4-4.0); Lymphocytes % 4.1 % (21.3-54.2); Mean Corpuscular HGB Conc 31.1 GM/DL (32-36); Mean Corpuscular Hemoglobin 22 PG (27-34); Mean Corpuscular Volume 71.1 FL (87-102); Mean Platelet Volume 11.4 FL (9.6-12.0); Monocytes # 0.2 10*3/uL (0.11-0.8); Monocytes % 3.6 % (1.7-12.7); Neutrophils # 3.6 10*3/uL (1.4-7.4); Neutrophils % 86.7 % (38.7-73.9); Platelet Count 317 T/CUMM (130-400); Red Blood Count 4.12 MC/CUMM (3.8-5.5); Red Cell Distribution Width 21.7 % (9.3-17.3); White Blood Count 4.1 T/CUMM (4-12)
[2017-01-21 07:00] LABS: Lymphocytes 8 % (20-55); Platelet Estimate Normal; Segmented Neutrophils 88 % (50-85); Total Cells Counted 100
[2017-01-21 07:01] LABS: Alanine Aminotransferase 19 U/L (13-56); Albumin 1.9 G/DL (3.4-5.0); Alkaline Phosphatase 96 U/L (45-117); Aspartate Amino Transferase 26 U/L (0-37); Bilirubin,Total < 0.39 MG/DL (0.2-1.0); Blood Urea Nitrogen 17 MG/DL (7-18); Calcium 8.7 MG/DL (8.5-10.1); Glucose 105 MG/DL (74-106); Magnesium 2.6 MG/DL (1.8-2.4); Osmolality,Calculated 280.4 MOS/KG (273-304); Phosphorous 5.1 MG/DL (2.5-4.9); Potassium 4.6 MMOL/L (3.5-5.1); Prealbumin 24.1 MG/DL (20-40); Sodium 140 MMOL/L (136-145); Total Protein 6.9 G/DL (6.4-8.3)
--- NOTE | 2017-01-21 08:09 | XRay Report ---
History: Patient on ventilator Date: 01/21/2017 Study: Chest x-ray AP portable Comparison exam: 01/20/2017 The endotracheal and nasogastric tubes remain in place without adverse change. There is stable cardiomegaly. The mediastinal contours are similar. There is continued patchy and hazy edema/infiltrate in the lower lungs, left greater than right. There is improved aeration in the lower lungs to a mild degree. There is no interval worsening. There is no gross layering pleural effusion. Osseous structures are similar. Impression: Continued left greater than right bibasilar pulmonary edema/infiltrate with mild interval improvement. No interval worsening PROCEDURE INTERPRETED AT [facility] DEPARTMENT OF RADIOLOGY Final Report Signed by: Dr. Gertrude Garcia
--- NOTE | 2017-01-21 08:12 | Pulmonology Progress Note ---
Pulmonary - PN: Subj Interval history: The patient is a 51-year-old black lady that has recently been diagnosed with HIV infection. She has not had any treatment. She has a history of drug abuse and schizophrenia. She came in with a near syncopal event. She been having diarrhea and not eating very well. She was having SVT and shortness of breath. She does have bilateral infiltrates. She was intubated and placed on the ventilator. She has done fairly well over the past few days. However her oxygenation is not as good as she still has some mild infiltrates. She is off pressors. She did fairly well yesterday on some CPAP trials. She did fatigue however. Her chest x-ray is better but still shows mild infiltrates. Her PO2 is better. She did diurese fairly well. We will continue CPAP today and hopefully extubate soon Exam (Progress Note) - Constitutional Vitals: Period Temp Pulse Resp BP Sys/Molina Pulse Ox Last 24 Hr 96.7 F-99.0 F 76-111 11-31 95-138/56-90 92-100 Exam: General appearance: normal weight, she is sedated and comfortable on the ventilator. Her vital signs are stable. - Head Head exam: Present: normal inspection, normocephalic - Eye Eye exam: Present: EOMI. Absent: scleral icterus Pupils: Present: IRIS - ENT ENT exam: Present: ET tube is in good position. - Neck Neck exam: Absent: lymphadenopathy, meningismus, thyromegaly - Respiratory Respiratory exam: Present: She has good breath sounds bilaterally and moving air fairly well. Her lungs sound a little better today. - Cardiovascular Cardiovascular exam: Present: regular rate and rhythm. Absent: gallop, systolic murmur - GI/Abdominal GI/Abdominal exam: Present: normal bowel sounds, soft. Absent: organomegaly, tenderness - Extremities Exam Extremities exam: Absent: calf tenderness, edema - Neurological Exam Neurological exam: Present: She is sedated on the ventilator at present. - Psychiatric Psychiatric exam: Absent: anxious - Skin Skin exam: Present: warm, dry Results - Labs CBC & BMP: 01/21/17 05:56 01/21/17 05:56 Labs: Her PO2 is 101 with a PCO2 of 38 and a pH of 7.33. She is on 50% O2. - Diagnostic Findings Procedure: Chest x-ray: image reviewed by me, report reviewed by me (Chest x- ray does shows minimal infiltrates now.) Assessment and Plan (1) History of schizophrenia Status: Acute Assessment and plan: The patient apparently takes Prozac and Seroquel. Current Visit: Yes (2) Pneumonitis Status: Acute Assessment and plan: Patient does have bilateral infiltrates and her sputum is positive for pneumocystis. She is getting IV Bactrim and steroids. Chest x-ray looks a little wet today. We will try to diurese a little. She will continue with CPAP trials. Current Visit: Yes (3) Acute HIV infection Status: Acute Assessment and plan: She will be followed by ID Current Visit: Yes (4) Sepsis Status: Acute Assessment and plan: Her blood pressure and heart rate are better at present. She is off pressors and is fairly stable. Will cut back on her IV fluids. Current Visit: Yes
[2017-01-21] MEDS ORDERED: FUROSEMIDE 20 MG/2 ML VIAL IV ONE (08:13)
[2017-01-21] MEDS: PANTOPRAZOLE 40 MG VIAL IV SCH (08:31)
[2017-01-21] MEDS: FLUoxetine 20 MG CAPSULE PO SCH (08:32)
--- NOTE | 2017-01-21 11:42 | Hospitalist Progress Note ---
Hospitalist: Subjective Interval history: 51-year-old -[place] female with history of schizophrenia and substance abuse and now a recent diagnosis of HIV, developed respiratory failure due to pneumonia and is on ventilator. She is comfortable on the vent. Exam - Constitutional Vitals: Period Temp Pulse Resp BP Sys/Molina Pulse Ox Last 24 Hr 96.7 F-99.0 F 76-111 11-31 95-138/56-90 92-100 Exam: General: No Acute Distress HEENT: Normocephalic, atraumatic, Extra ocular movements intact Neck: Supple, No JVD Chest: Clear to auscultation B/L CV: S1 + S2 audible without murmur, gallop or rub Abd: soft, NT, Non-distended, BS + Ext: No edema Skin: No purpura, bruising or rash Rheumatologic: No Joint deformities Results - Labs CBC & BMP: 01/21/17 05:56 01/21/17 05:56 - Impressions Assessment and Plan: PCP (pneumocystis jiroveci pneumonia) Pneumonia/Proteus Pneumonia Status: Acute Assessment and plan: Suspected pneumocystis pneumonia bilateral lung infiltrates and history of HIV. Continue IV Bactrim for PCP for 3 weeks and Rocephin for Proteus Current Visit: Yes Sepsis Status: Acute Assessment and plan: On Levophed as needed and IV fluid Current Visit: Yes Acute hypoxemic respiratory failure due to pneumonia Status: Acute Assessment and plan: She is on ventilator, and is getting CPAP trial Current Visit: Yes HIV/AIDS Status: Acute Assessment and plan: PCP Pneumonia is AIDS defining Current Visit: Yes Schizophrenia Status: Acute Assessment and plan: She was on Prozac and Seroquel. Current Visit: Yes Hyperkalemia Status: Acute Assessment and plan: Resolved Current Visit: Yes Nutrition: She is getting Jevity 1.5 via tube feed
--- NOTE | 2017-01-21 15:41 | Infectious Disease Progress ---
Assessment and Plan (1) HIV disease Status: Acute Assessment and plan: AIDS given confirmation of pneumocystis pneumonia which is an AIDS defining illness. CD4 count and other labs still pending. Current Visit: Yes (2) History of schizophrenia Status: Acute Current Visit: Yes (3) Pneumonitis Status: Acute Assessment and plan: PCP pneumonia confirmed. Proteus was also isolated from the sputum culture. Recommendations: Complete 5 days of ceftriaxone therapy for the Proteus thus 1 more day to go after today. Current Visit: Yes (4) PCP (pneumocystis jiroveci pneumonia) Status: Acute Assessment and plan: PCP confirmed with positive PCR. Recommendations: Continue with Bactrim and steroids. Hopefully extubated soon. Treatment duration will be 3 weeks however when patient gets extubated will be able to switch to oral therapy. Current Visit: Yes Infectious Disease - PN: Subj Interval history: Patient got diuresed to be. She is doing well with weaning trials. She has not had fever. Has been hemodynamically stable. Infectious Disease Exam (PN) - Constitutional Vitals: Temp Pulse Resp BP Pulse Ox 97.9 F 79 25 H 107/67 100 01/21/17 12:39 01/21/17 13:45 01/21/17 14:03 01/21/17 12:39 01/21/17 13:45 General appearance: normal weight Exam: General appearance: Comfortable on the vent, awake - Eye Eye exam: Present: EOMI. no icterus Pupils: Present: IRIS - ENT ENT exam: ET tube in situ - Respiratory Respiratory exam: vesicular BS, no crepitations or wheezes - Cardiovascular Cardiovascular exam: regular rate and rhythm, no murmurs - GI/Abdominal GI/Abdominal exam: normal bowel sounds, soft, non-tender, no organomegaly or mass - Extremities Exam Extremities exam: no edema - Skin Skin exam: no rash Results - Labs CBC & BMP: 01/21/17 05:56 01/21/17 05:56 Lab Results: I have reviewed the past 24 hour labs
[2017-01-21] MEDS: ENOXAPARIN 40 MG/0.4 ML SYRINGE SUBCUT SCH (16:46)
--- NOTE | 2017-01-21 18:16 | Pathology Report from [facility] ---
[facility] – [place] ACCESSION # : [id number] PATIENT NAME : Germaine Vu ORDERING DR : Arleen Fong MD CLINICAL HX: Silver stain for Pneumocystis POST-OP DX: Same SPECIMEN INFO: Sputum - 5 mls yellowish, mucoid CLASS: I CLASS COMMENTS: Pulmonary macrophages present. Pneumocystis immunostain: POSITIVE. CLASS LEGEND: CLASS 0 Material inadequate for diagnosis because of (see comment) CLASS I Absence of atypical or abnormal cells CLASS II Atypical Cytology but no evidence of malignancy CLASS III Cytology suggestive of but not conclusive for malignancy CLASS IV Cytology strongly suggestive of malignancy CLASS V Cytology conclusive for malignancy COLLECTED DATE: 01/19/2017 [facility] REPORT DATE: 01/21/2017 ELECTRONICALLY SIGNED BY: Fernando Stoddard M.D. 01/21/2017 - 14:23:35 [facility]
[2017-01-21] MEDS: QUEtiapine XR 50 MG TABLET PO SCH (20:46)
[2017-01-21] MEDS: MORPHINE 2 MG/1 ML SYRINGE IV PRN (21:13)
[2017-01-22] MEDS: SULFAMETH IV SCH ×3 (01:09→17:15)
[2017-01-22] MEDS: DEXTROSE 5% IV SCH ×3 (01:09→17:15)
[2017-01-22] MEDS: methylPREDNISolone SOD SUC 40 MG/1 ML VIAL IV SCH ×3 (01:09→20:09)
[2017-01-22] MEDS: TRIMETH IV SCH ×3 (01:09→17:15)
[2017-01-22] MEDS: ALBUTEROL/IPRATROPIUM 3 ML NEB RESP TX SCH ×4 (01:11→19:15)
[2017-01-22] MEDS: PROPOFOL 1,000 MG/100 ML BOTTLE IV SCH ×2 (01:39→06:39)
[2017-01-22 03:57] LABS: ABG Base Excess -2.9 MMOL/L (-2.5-2.5); ABG HCO3 21.9 MMOL/L (20-26); ABG Oxygen Saturation 96.5 % (95-100); ABG PCO2 39.4 MM HG (35-48); ABG PH 7.359 (7.35-7.45); ABG PO2 94.5 MM HG (80-95); ABG TCO2 20.5 MMOL/L (23-27)
[2017-01-22 05:55] LABS: Basophils % 0.3 % (0.0-0.8); Hematocrit 30.8 VOL% (35.7-47.0); Hemoglobin 9.5 GM/DL (12.0-16.0); Immature Granulocytes Absolute 0.12 #; Lymphocytes # 0.3 10*3/uL (1.4-4.0); Lymphocytes % 6.3 % (21.3-54.2); Mean Corpuscular HGB Conc 30.8 GM/DL (32-36); Mean Corpuscular Hemoglobin 22 PG (27-34); Mean Corpuscular Volume 71.8 FL (87-102); Mean Platelet Volume 10.9 FL (9.6-12.0); Monocytes # 0.1 10*3/uL (0.11-0.8); Monocytes % 3.3 % (1.7-12.7); NRBC # 0.02 10*3/uL; Neutrophils # 3.4 10*3/uL (1.4-7.4); Neutrophils % 87.1 % (38.7-73.9); Platelet Count 302 T/CUMM (130-400); Red Blood Count 4.29 MC/CUMM (3.8-5.5); Red Cell Distribution Width 21.6 % (9.3-17.3)
[2017-01-22 06:17] LABS: Hypochromasia 1+; Ovalocytes Slight; Platelet Estimate Adequate
[2017-01-22 06:18] LABS: Giant Platelets Few; Microcytosis Slight
[2017-01-22 06:30] LABS: Calcium 8.3 MG/DL (8.5-10.1); Magnesium 2.5 MG/DL (1.8-2.4); Potassium 5.3 MMOL/L (3.5-5.1)
[2017-01-22] MEDS: INSULIN REGULAR 100 UNIT/ML SUBCUT SCH ×2 (06:40→11:39)
--- NOTE | 2017-01-22 07:11 | Pulmonology Progress Note ---
Pulmonary - PN: Subj Interval history: The patient is a 51-year-old black lady that has recently been diagnosed with HIV infection. She has not had any treatment. She has a history of drug abuse and schizophrenia. She came in with a near syncopal event. She been having diarrhea and not eating very well. She was having SVT and shortness of breath. She does have bilateral infiltrates. She was intubated and placed on the ventilator. She has done fairly well over the past few days. She is felt to have AIDS with pneumocystis pneumonia. She did diurese nicely. Her chest x- ray is getting better. She did CPAP fairly well yesterday. Her ABGs look a little better. Will see if we can extubate her today. Exam (Progress Note) - Constitutional Vitals: Period Temp Pulse Resp BP Sys/Molina Pulse Ox Last 24 Hr 97.2 F-99.0 F 70-95 11-28 104-138/59-87 95-100 Exam: General appearance: normal weight, she is sedated and comfortable on the ventilator. Her vital signs are stable. - Head Head exam: Present: normal inspection, normocephalic - Eye Eye exam: Present: EOMI. Absent: scleral icterus Pupils: Present: IRIS - ENT ENT exam: Present: ET tube is in good position. - Neck Neck exam: Absent: lymphadenopathy, meningismus, thyromegaly - Respiratory Respiratory exam: Present: She has good breath sounds bilaterally and moving air fairly well. Her lungs sound a little better today. She does not have any increased rales or wheezing. - Cardiovascular Cardiovascular exam: Present: regular rate and rhythm. Absent: gallop, systolic murmur - GI/Abdominal GI/Abdominal exam: Present: Her abdomen is a little distended but is soft and nontender. Bowel sounds are hypoactive. - Extremities Exam Extremities exam: Absent: calf tenderness, edema - Neurological Exam Neurological exam: Present: She is sedated on the ventilator at present. She will respond okay however. - Psychiatric Psychiatric exam: Absent: anxious - Skin Skin exam: Present: warm, dry Results - Labs CBC & BMP: 01/22/17 05:03 01/22/17 05:03 Labs: PO2 94 with a PCO2 of 39 and pH 7.35 - Diagnostic Findings Procedure: Chest x-ray: image reviewed by me, report reviewed by me (Chest x- ray shows improving infiltrates.) Assessment and Plan (1) History of schizophrenia Status: Acute Assessment and plan: The patient apparently takes Prozac and Seroquel. Current Visit: Yes (2) Pneumonitis Status: Acute Assessment and plan: Patient does have bilateral infiltrates and her sputum is positive for pneumocystis. She is getting IV Bactrim and steroids. Chest x-ray looks better and her oxygenation is better. We will continue weaning trials. Current Visit: Yes (3) Acute HIV infection Status: Acute Assessment and plan: She will be followed by ID. She will need treatment for AIDS. Current Visit: Yes (4) Sepsis Status: Acute Assessment and plan: Her blood pressure and heart rate are better at present. She is off pressors and is fairly stable. Will cut back on her IV fluids. She is actually diuresing well now. Current Visit: Yes
--- NOTE | 2017-01-22 07:57 | XRay Report ---
Portable chest Date: 01/22/2017 Clinical history: Ventilator Comparison: 01/21/2017 Technique: Portable AP sitting chest Findings: The heart is borderline in size with the tip of the endotracheal tube remaining above the level of ike. Nasogastric tube seen entering the stomach. Reduction in the parenchymal findings in the lower lung zones. Stable mediastinum and osseous structures. Impression: Improved pulmonary edema/infiltration. The endotracheal tube remains just above the level of the ike. PROCEDURE INTERPRETED AT [facility] DEPARTMENT OF RADIOLOGY Final Report Signed by: Dr. Laurie Whaley
[2017-01-22 08:38] LABS: % CD4 (T Cells) 3 % (32-64); % CD8 (T Cells) 71 % (11-40); 4/8 Ratio 0 (>=0.9)
[2017-01-22] MEDS: FLUoxetine 20 MG CAPSULE PO SCH (08:42)
[2017-01-22] MEDS: PANTOPRAZOLE 40 MG VIAL IV SCH (08:42)
[2017-01-22 09:13] LABS: ABG Base Excess -0.9 MMOL/L (-2.5-2.5); ABG HCO3 23.7 MMOL/L (20-26); ABG Oxygen Saturation 95.4 % (95-100); ABG PCO2 41.2 MM HG (35-48); ABG PH 7.377 (7.35-7.45); ABG PO2 84.6 MM HG (80-95); ABG TCO2 22.2 MMOL/L (23-27); Allen Test Positive; Pt O2 Delivery Device Ventilator
--- NOTE | 2017-01-22 11:12 | Hospitalist Progress Note ---
Hospitalist: Subjective Interval history: Patient is awake and comfort, doing well on weaning trial, there is plan to extubate her today Exam - Constitutional Vitals: Period Temp Pulse Resp BP Sys/Molina Pulse Ox Last 24 Hr 97 F-99.0 F 70-95 12-28 104-138/59-94 94-100 Exam: General: No Acute Distress HEENT: Normocephalic, atraumatic, Extra ocular movements intact Neck: Supple, No JVD Chest: Clear to auscultation B/L CV: S1 + S2 audible without murmur, gallop or rub Abd: soft, NT, Non-distended, BS + Ext: No edema Skin: No purpura, bruising or rash Rheumatologic: No Joint deformities Results - Labs CBC & BMP: 01/22/17 05:03 01/22/17 05:03 - Impressions - Impressions Assessment and Plan: PCP (pneumocystis jiroveci pneumonia) Pneumonia/Proteus Pneumonia due to AIDS Status: Acute Assessment and plan: Suspected pneumocystis pneumonia bilateral lung infiltrates and history of HIV. Continue IV Bactrim for PCP for 3 weeks and Rocephin for Proteus for total of 5 days Current Visit: Yes Oral thrush due to AIDS Status: Acute Assessment and plan: Nystatin and Diflucan Current Visit: Yes Sepsis Status: Acute Assessment and plan: On Levophed as needed and IV fluid Current Visit: Yes Acute hypoxemic respiratory failure due to pneumonia Status: Acute Assessment and plan: She is on ventilator, and is getting CPAP trial. There is a plan to extubate her today. Current Visit: Yes HIV/AIDS Status: Acute Assessment and plan: PCP Pneumonia is AIDS defining Current Visit: Yes Schizophrenia Status: Acute Assessment and plan: She was on Prozac and Seroquel. Current Visit: Yes Hyperkalemia Status: Acute Assessment and plan: Resolved Current Visit: Yes Nutrition: She is getting Jevity 1.5 via tube feed, however once extubated she was started on liquid diet and advance as tolerated
--- NOTE | 2017-01-22 11:33 | Infectious Disease Progress ---
Assessment and Plan (1) HIV disease Status: Acute Assessment and plan: She has AIDS with advanced immune suppression. CD4 count is only 7. Recommendations: 1. Start azithromycin 1200 mg weekly for MAC prophylaxis 2. Complete treatment for PCP as below and subsequently she will need to be on Bactrim double strength 1 tablet daily indefinitely for secondary prophylaxis 3. Informed patient and her daughter re need for urgent follow-up with [facility] [place] on discharge Discussed with Dr. Cancino Current Visit: Yes (2) History of schizophrenia Status: Acute Current Visit: Yes (3) Pneumonitis Status: Acute Assessment and plan: PCP pneumonia confirmed. Proteus was also isolated from the sputum culture. Recommendations: DC ceftriaxone after dose today Current Visit: Yes (4) PCP (pneumocystis jiroveci pneumonia) Status: Acute Assessment and plan: PCP confirmed with positive PCR. Recommendations: 1. Continue with Bactrim and steroids. 2. Once she is able to swallow changed to Bactrim double strength 2 tablets 3 times per day. She needs continued treatment with Bactrim until February 05. 3. I am going to change methylprednisolone to 40 mg every 12 hours. When able to swallow switch prednisone 40 mg p.o. daily 5 days and then 20 mg p.o. daily until February 05. Current Visit: Yes (5) Oral candidiasis Status: Acute Assessment and plan: This is quite severe. Treat with fluconazole 100 mg daily. Current Visit: Yes Infectious Disease - PN: Subj Interval history: Patient extubated this morning and is doing great so far. Has no specific complaints, denies cough or shortness of breath. She has not had any fever. Infectious Disease Exam (PN) - Constitutional Vitals: Temp Pulse Resp BP Pulse Ox 97 F L 81 24 136/87 94 L 01/22/17 08:00 01/22/17 10:00 01/22/17 10:00 01/22/17 10:01/22/17 10:00 General appearance: normal weight Exam: General appearance: Comfortable, communicative - Eye Eye exam: Present: EOMI. no icterus Pupils: Present: IRIS - ENT ENT exam: Extensive whitish oral exudates - Respiratory Respiratory exam: vesicular BS, no crepitations or wheezes - Cardiovascular Cardiovascular exam: regular rate and rhythm, no murmurs - GI/Abdominal GI/Abdominal exam: normal bowel sounds, soft, non-tender, no organomegaly or mass - Extremities Exam Extremities exam: no edema - Skin Skin exam: no rash Results - Labs CBC & BMP: 01/22/17 05:03 01/22/17 05:03 Lab Results: I have reviewed the past 24 hour labs (CD4 count only 7)
[2017-01-22] MEDS ORDERED: AZITHROMYCIN 250 MG TABLET PO ONE (11:38)
[2017-01-22] MEDS ORDERED: INFLUENZA VIRUS VACCINE 0.5 ML SYRINGE IM ONE (13:51)
[2017-01-22] MEDS: NYSTATIN 500,000 UNIT/5 ML UDCUP SWISH/SWAL SCH ×3 (13:53→20:08)
[2017-01-22] MEDS: ENOXAPARIN 40 MG/0.4 ML SYRINGE SUBCUT SCH (16:48)
[2017-01-22] MEDS ORDERED: SIMETHICONE CHEW 125 MG TABLET PO PRN (19:44)
[2017-01-22] MEDS: BENZONATATE 100 MG CAPSULE PO PRN (20:08)
[2017-01-22] MEDS: QUEtiapine XR 50 MG TABLET PO SCH (20:09)
[2017-01-23] MEDS: ALBUTEROL/IPRATROPIUM 3 ML NEB RESP TX SCH ×4 (00:44→19:38)
[2017-01-23] MEDS: TRIMETH IV SCH ×3 (02:00→16:56)
[2017-01-23] MEDS: SULFAMETH IV SCH ×3 (02:00→16:56)
[2017-01-23] MEDS: DEXTROSE 5% IV SCH ×3 (02:00→16:56)
[2017-01-23] MEDS: methylPREDNISolone SOD SUC 40 MG/1 ML VIAL IV SCH ×2 (08:04→20:35)
[2017-01-23] MEDS: NYSTATIN 500,000 UNIT/5 ML UDCUP SWISH/SWAL SCH ×4 (08:35→20:36)
[2017-01-23] MEDS: FLUCONAZOLE 100 MG TABLET PO SCH (08:36)
[2017-01-23] MEDS: FLUoxetine 20 MG CAPSULE PO SCH (08:36)
[2017-01-23] MEDS: PANTOPRAZOLE 40 MG VIAL IV SCH (08:36)
--- NOTE | 2017-01-23 08:41 | XRay Report ---
XR chest 1V portable Indication: Ventilator patient Comparison: and December 2016 Findings: The heart and mediastinum are similar in size and configuration. Endotracheal tube and NG tube have been removed. The pulmonary vascularity is normal in caliber. There is increased left lung density. No other lung infiltrates, effusions, pneumothorax or other abnormality is demonstrated. Impression: Interval extubation and removal of NG tube. Increased left lung density could indicate atelectasis. PROCEDURE INTERPRETED AT [facility] DEPARTMENT OF RADIOLOGY Final Report Signed by: Dr. Carson Allan
--- NOTE | 2017-01-23 10:09 | Pulmonology Progress Note ---
Pulmonary - PN: Subj Interval history: This is a 51-year-old black female who has schizophrenia and substance abuse. She has a. She has had an pneumocystis pneumonia. She was on mechanical ventilation recently but is now off and is doing much better. She was extubated on 01/22/2017. She is being treated with Bactrim. Her renal function has been stable she has no new complaints today and says overall she feels better. Chest x-ray which is semiupright right lateral oblique shows heart size is normal. Right lung is clear. There is still alveolar infiltrates in the left lung. There are no new cultures. ABGs on FiO2 40% showed pH 7.38, PCO2 41, PO2 of 84, bicarbonate 24. Lab. Sodium 136. Potassium 5.3. Creatinine 0.8. White count 4000. Physical exam Vital signs. See below. Afebrile Psychiatric oriented 3 Neurologic. Cranial nerves are intact patient moves all fours Face. Symmetrical. No edema lips or tongue Neck. Symmetrical no meningismus Chest. Slightly stiff breath sounds bilaterally Heart. No gallop Abdomen nondistended positive bowel sounds Extremities nothing to suggest deep venous thrombophlebitis The remainder the physical exam is negative Plan. 1. I made no changes in orders. 2. Continue to follow present regimen 3. Continue to follow x-rays and ABGs Exam (Progress Note) - Constitutional Vitals: Period Temp Pulse Resp BP Sys/Molina Pulse Ox Last 24 Hr 97.1 F-97.9 F 77-107 16-28 113-152/66-93 89-100 Results - Labs CBC & BMP: 01/22/17 05:03 01/22/17 05:03
--- NOTE | 2017-01-23 13:17 | Hospitalist Progress Note ---
Hospitalist: Subjective Interval history: Patient is awake and comfort. She was admitted with pneumocystis pneumonia with respiratory failure Exam - Constitutional Vitals: Period Temp Pulse Resp BP Sys/Molina Pulse Ox Last 24 Hr 97.1 F-97.9 F 83-118 16-28 111-152/66-93 91-100 Exam: General: No Acute Distress HEENT: Normocephalic, atraumatic, Extra ocular movements intact Neck: Supple, No JVD Chest: Clear to auscultation B/L CV: S1 + S2 audible without murmur, gallop or rub Abd: soft, NT, Non-distended, BS + Ext: No edema Skin: No purpura, bruising or rash Rheumatologic: No Joint deformities Results - Labs CBC & BMP: 01/22/17 05:03 01/22/17 05:03 - Impressions Assessment and Plan: PCP (pneumocystis jiroveci pneumonia) Pneumonia/Proteus Pneumonia due to AIDS Status: Acute Assessment and plan: Pneumocystis pneumonia bilateral lung infiltrates and history of HIV. Continue IV Bactrim for PCP for 3 weeks. Current Visit: Yes Oral thrush due to AIDS Status: Acute Assessment and plan: Continue nystatin and Diflucan Current Visit: Yes Sepsis Status: Acute Assessment and plan: Better Current Visit: Yes Acute hypoxemic respiratory failure due to pneumonia Status: Acute Assessment and plan: She is doing well after extubation 01/22 Current Visit: Yes HIV/AIDS Status: Acute Assessment and plan: PCP Pneumonia is AIDS defining Current Visit: Yes Schizophrenia Status: Acute Assessment and plan: She was on Prozac and Seroquel. Current Visit: Yes Hyperkalemia Status: Acute Assessment and plan: Resolved Current Visit: Yes
[2017-01-23] MEDS: ENOXAPARIN 40 MG/0.4 ML SYRINGE SUBCUT SCH (16:56)
[2017-01-23] MEDS: QUEtiapine XR 50 MG TABLET PO SCH (20:36)
[2017-01-23] MEDS: BENZONATATE 100 MG CAPSULE PO PRN (20:37)
[2017-01-24] MEDS: ALBUTEROL/IPRATROPIUM 3 ML NEB RESP TX SCH ×4 (00:53→19:37)
[2017-01-24] MEDS: TRIMETH IV SCH ×2 (02:20→08:35)
[2017-01-24] MEDS: SULFAMETH IV SCH ×2 (02:20→08:35)
[2017-01-24] MEDS: DEXTROSE 5% IV SCH ×2 (02:20→08:35)
[2017-01-24] MEDS: methylPREDNISolone SOD SUC 40 MG/1 ML VIAL IV SCH (08:30)
[2017-01-24] MEDS: FLUoxetine 20 MG CAPSULE PO SCH (08:32)
[2017-01-24] MEDS: FLUCONAZOLE 100 MG TABLET PO SCH (08:32)
[2017-01-24] MEDS: ACETAMINOPHEN 325 MG TABLET PO PRN ×2 (08:32→20:24)
[2017-01-24] MEDS: NYSTATIN 500,000 UNIT/5 ML UDCUP SWISH/SWAL SCH ×4 (08:33→20:23)
[2017-01-24] MEDS: PANTOPRAZOLE 40 MG VIAL IV SCH (08:34)
--- NOTE | 2017-01-24 10:56 | Pulmonology Progress Note ---
Pulmonary - PN: Subj Interval history: This is a 51-year-old black female who has schizophrenia and substance abuse. She has a. She has had an pneumocystis pneumonia. She was on mechanical ventilation recently but is now off and is doing much better. She was extubated on 01/22/2017. She is being treated with Bactrim. Her renal function has been stable she has no new complaints today and says overall she feels better. Chest x-ray which is semiupright right lateral oblique shows heart size is normal. Right lung is clear. There is still alveolar infiltrates in the left lung. There are no new cultures. ABGs on FiO2 40% showed pH 7.38, PCO2 41, PO2 of 84, bicarbonate 24. Lab. Sodium 136. Potassium 5.3. Creatinine 0.8. White count 4000. 01/24/2017. Patient says her breathing is better. Today's chest x-ray is a better view and is unchanged from the film done 9 10/23/2016. There is no new lab and no new ABGs today. There are no new complaints. There are no new requests. Physical exam Vital signs. See below. Afebrile Psychiatric oriented 3 Neurologic. Cranial nerves are intact patient moves all fours Face. Symmetrical. No edema lips or tongue Neck. Symmetrical no meningismus Chest. Slightly stiff breath sounds bilaterally Heart. No gallop Abdomen nondistended positive bowel sounds Extremities nothing to suggest deep venous thrombophlebitis The remainder the physical exam is negative Plan. 01/23/2017. 1. I made no changes in orders. 2. Continue to follow present regimen 3. Continue to follow x-rays and ABGs 01/24/2017. 1. See today's note above. 2. No changes in regimen were made. 3. Patient appears to be improved Exam (Progress Note) - Constitutional Vitals: Period Temp Pulse Resp BP Sys/Molina Pulse Ox Last 24 Hr 97.3 F-99 F 85-141 2-29 111-162/73-92 89-100 Results - Labs CBC & BMP: 01/22/17 05:03 01/22/17 05:03
--- NOTE | 2017-01-24 14:18 | Hospitalist Progress Note ---
Hospitalist: Subjective Interval history: Patient is awake and alert, denies shortness of breath, she is now tolerating diet. Exam - Constitutional Vitals: Period Temp Pulse Resp BP Sys/Molina Pulse Ox Last 24 Hr 97.3 F-99 F 85-118 2-29 109-162/73-95 89-100 Exam: General: No Acute Distress HEENT: Normocephalic, atraumatic, Extra ocular movements intact Neck: Supple, No JVD Chest: Clear to auscultation B/L CV: S1 + S2 audible without murmur, gallop or rub Abd: soft, NT, Non-distended, BS + Ext: No edema Skin: No purpura, bruising or rash Rheumatologic: No Joint deformities Results - Labs CBC & BMP: 01/22/17 05:03 01/22/17 05:03 - Impressions Assessment and Plan: PCP (pneumocystis jiroveci pneumonia) Pneumonia/Proteus Pneumonia due to AIDS Status: Acute Assessment and plan: Suspected pneumocystis pneumonia bilateral lung infiltrates and history of HIV. Switch to oral Bactrim and p.o. prednisone 01/24, as she is now tolerating diet quite well Current Visit: Yes Oral thrush due to AIDS Status: Acute Assessment and plan: Nystatin and Diflucan, getting better Current Visit: Yes Sepsis Status: Acute Assessment and plan: Resolved Current Visit: Yes Acute hypoxemic respiratory failure due to pneumonia Status: Acute Assessment and plan: Improved Current Visit: Yes HIV/AIDS Status: Acute Assessment and plan: PCP Pneumonia is AIDS defining, CD4 count was 7. She will need to follow-up with an HIV clinic after discharge to initiate HAART treatment Current Visit: Yes Schizophrenia Status: Acute Assessment and plan: She was on Prozac and Seroquel. Current Visit: Yes Hyperkalemia Status: Acute Assessment and plan: Mild, monitor Current Visit: Yes Transfer to floor from ICU
[2017-01-24] MEDS: SULFAMETHOX/TRIMETHOPRIM 800-160 MG TABLET PO SCH ×2 (15:59→20:23)
[2017-01-24] MEDS: ENOXAPARIN 40 MG/0.4 ML SYRINGE SUBCUT SCH (15:59)
[2017-01-24] MEDS: QUEtiapine XR 50 MG TABLET PO SCH (17:35)
[2017-01-25] MEDS: ALBUTEROL/IPRATROPIUM 3 ML NEB RESP TX SCH ×4 (00:40→20:36)
[2017-01-25 05:52] LABS: Eosinophils # 0.2 10*3/uL (0.0-0.87); Eosinophils % 3.1 % (0.00-10.9); Hematocrit 30.9 VOL% (35.7-47.0); Hemoglobin 9.5 GM/DL (12.0-16.0); Immature Granulocytes % 4.9 %; Immature Granulocytes Absolute 0.27 #; Lymphocytes # 0.5 10*3/uL (1.4-4.0); Lymphocytes % 8.8 % (21.3-54.2); Mean Corpuscular HGB Conc 30.7 GM/DL (32-36); Mean Corpuscular Hemoglobin 22 PG (27-34); Monocytes # 0.4 10*3/uL (0.11-0.8); Monocytes % 7.2 % (1.7-12.7); Neutrophils # 4.2 10*3/uL (1.4-7.4); Red Blood Count 4.29 MC/CUMM (3.8-5.5); Red Cell Distribution Width 21.5 % (9.3-17.3)
[2017-01-25 06:07] LABS: White Blood Count 5.6 T/CUMM (4-12)
[2017-01-25 06:08] LABS: Platelet Count 193 T/CUMM (130-400)
[2017-01-25 06:24] LABS: Osmolality,Calculated 276.5 MOS/KG (273-304); Potassium 3.4 MMOL/L (3.5-5.1)
[2017-01-25 06:32] LABS: Eosinophils 5 % (0-10); Giant Platelets Few; Hypochromasia 1+; Lymphocytes 8 % (20-55); Microcytosis Slight; Ovalocytes Slight; Platelet Estimate Normal; Segmented Neutrophils 80 % (50-85); Total Cells Counted 100
[2017-01-25] MEDS: NYSTATIN 500,000 UNIT/5 ML UDCUP SWISH/SWAL SCH ×4 (08:40→20:36)
[2017-01-25] MEDS: FLUoxetine 20 MG CAPSULE PO SCH (08:41)
[2017-01-25] MEDS: FLUCONAZOLE 100 MG TABLET PO SCH (08:41)
[2017-01-25] MEDS: PANTOPRAZOLE 40 MG TABLET PO SCH (08:42)
[2017-01-25] MEDS: SULFAMETHOX/TRIMETHOPRIM 800-160 MG TABLET PO SCH ×3 (08:42→20:36)
[2017-01-25] MEDS ORDERED: predniSONE 20 MG TABLET PO SCH (09:00)
--- NOTE | 2017-01-25 12:43 | Infectious Disease Progress ---
Assessment and Plan (1) HIV disease Status: Acute Assessment and plan: She has AIDS with advanced immune suppression. CD4 count is only 7. Recommendations: 1. Patient needs to continue azithromycin 1200 mg weekly for MAC prophylaxis 2. Complete treatment for PCP as below and subsequently she will need to be on Bactrim double strength 1 tablet daily indefinitely for secondary prophylaxis 3. Appointment to [facility] as soon as possible after discharge for commencement of antiretroviral therapy Current Visit: Yes (2) History of schizophrenia Status: Acute Current Visit: Yes (3) Pneumonitis Status: Acute Current Visit: Yes (4) PCP (pneumocystis jiroveci pneumonia) Status: Acute Assessment and plan: PCP confirmed with positive PCR. Recommendations: 1. Continue with Bactrim double strength 2 tablets 3 times per day. She needs continued treatment with Bactrim until February 05. 3. Continue prednisone but switch to 20 mg daily. She will need to continue this also until February 05 I will sign off now. Call again as needed. Current Visit: Yes (5) Oral candidiasis Status: Acute Assessment and plan: Resolved with fluconazole Current Visit: Yes Infectious Disease - PN: Subj Interval history: Patient out of ICU and generally doing better. Minimal cough. No fever. Infectious Disease Exam (PN) - Constitutional Vitals: Temp Pulse Resp BP Pulse Ox 97.6 F 117 H 20 128/84 95 01/25/17 10:49 01/25/17 10:49 01/25/17 10:49 01/25/17 10:49 01/25/17 10:49 General appearance: normal weight Exam: General appearance: Comfortable in chair - Eye Eye exam: Present: EOMI. no icterus Pupils: Present: IRIS - ENT ENT exam: Resolved whitish oral exudates - Respiratory Respiratory exam: vesicular BS, no crepitations or wheezes - Cardiovascular Cardiovascular exam: regular rate and rhythm, no murmurs - GI/Abdominal GI/Abdominal exam: normal bowel sounds, soft, non-tender, no organomegaly or mass - Extremities Exam Extremities exam: no edema - Skin Skin exam: no rash Results - Labs CBC & BMP: 01/25/17 03:53 01/25/17 03:53 Lab Results: I have reviewed the past 24 hour labs
--- NOTE | 2017-01-25 13:30 | Hospitalist Progress Note ---
Assessment and Plan (1) PCP (pneumocystis jiroveci pneumonia) Status: Acute Assessment and plan: The patient will continue oral antibiotics at the time of discharge and follow- up at [facility]. Current Visit: Yes (2) History of schizophrenia Status: Acute Current Visit: Yes (3) HIV disease Status: Acute Current Visit: Yes Hospitalist: Subjective Interval history: Ms. Vu continues improvement in pneumocystis pneumonia. She is now on all oral agents. I anticipate discharge tomorrow with follow-up at [facility] per Dr. Pendleton's recommendations. The patient will take to Bactrim double strength 3 times daily through February 05 and then 1 twice daily. The patient will continue prednisone 20 mg daily. The patient will take Zithromax 1200 mg weekly. Exam - Constitutional Vitals: Period Temp Pulse Resp BP Sys/Molina Pulse Ox Last 24 Hr 97.6 F-98.8 F 93-117 15-20 117-142/75-91 86-100 - Respiratory Respiratory exam: Present: clear to auscultation bilaterally, prolonged expiratory phase - Cardiovascular Cardiovascular exam: Present: regular rate and rhythm - GI/Abdominal GI/Abdominal exam: Present: normal bowel sounds Results - Labs CBC & BMP: 01/25/17 03:53 01/25/17 03:53 Lab Results: I have reviewed the past 24 hour labs
[2017-01-25 15:28] LABS: HIV-1 Genotypic PR-RT Drug Res INTERP; Tipranavir + Ritonavir SUSC
[2017-01-25] MEDS: ENOXAPARIN 40 MG/0.4 ML SYRINGE SUBCUT SCH (16:18)
[2017-01-25] MEDS: QUEtiapine XR 50 MG TABLET PO SCH (18:13)
--- NOTE | 2017-01-25 18:24 | Pulmonology Progress Note ---
Pulmonary - PN: Subj Interval history: The patient is a 51-year-old black lady that has recently been diagnosed with HIV infection. She has not had any treatment. She has a history of drug abuse and schizophrenia. She came in with a near syncopal event. She been having diarrhea and not eating very well. She was having SVT and shortness of breath. She does have bilateral infiltrates. She was intubated and placed on the ventilator. She has done fairly well over the past few days. She is felt to have AIDS with pneumocystis pneumonia. She did diurese nicely. Her chest x- ray is getting better. She was extubated Wednesday and had a fairly good weekend. Her breathing is doing much better she has been moved to a regular room. She is sitting up and says she feels reasonably well. She still has some cough but much less shortness of breath. Her chest x-ray is improving. Overall she seems to be stable. Exam (Progress Note) - Constitutional Vitals: Period Temp Pulse Resp BP Sys/Molina Pulse Ox Last 24 Hr 97.6 F-98.8 F 98-118 15-20 117-139/75-84 80-100 Exam: General appearance: normal weight, she is sitting up in quite alert and comfortable. - Head Head exam: Present: normal inspection, normocephalic - Eye Eye exam: Present: EOMI. Absent: scleral icterus Pupils: Present: IRIS - ENT ENT exam: Present: Unremarkable - Neck Neck exam: Absent: lymphadenopathy, meningismus, thyromegaly - Respiratory Respiratory exam: Present: She has good breath sounds bilaterally and moving air fairly well. Her lungs sound much clearer which is very minimal crackles in the bases. - Cardiovascular Cardiovascular exam: Present: regular rate and rhythm. Absent: gallop, systolic murmur - GI/Abdominal GI/Abdominal exam: Present: Her abdomen is a little distended but is soft and nontender. Bowel sounds are hypoactive. - Extremities Exam Extremities exam: Absent: calf tenderness, edema - Neurological Exam Neurological exam: Present: She is alert and comfortable and moving around in her room. - Psychiatric Psychiatric exam: Absent: anxious - Skin Skin exam: Present: warm, dry Results - Labs CBC & BMP: 01/25/17 03:53 01/25/17 03:53 - Diagnostic Findings Procedure: Chest x-ray: image reviewed by me, report reviewed by me (Chest x- ray still showed some left lung infiltrate Wednesday) Assessment and Plan (1) History of schizophrenia Status: Acute Assessment and plan: The patient apparently takes Prozac and Seroquel. Current Visit: Yes (2) Pneumonitis Status: Acute Assessment and plan: Patient does have bilateral infiltrates and her sputum is positive for pneumocystis. She is getting IV Bactrim and steroids. Chest x-ray looks better and her oxygenation is better. She will continue with present therapy. Current Visit: Yes (3) Acute HIV infection Status: Acute Assessment and plan: She will be followed by ID. She will need treatment for AIDS. Current Visit: Yes (4) Sepsis Status: Resolved Assessment and plan: Her blood pressure and heart rate are better at present. She is off pressors and is fairly stable. Will cut back on her IV fluids. She is actually diuresing well now. She is hemodynamically stable. Current Visit: No
[2017-01-26] MEDS: ALBUTEROL/IPRATROPIUM 3 ML NEB RESP TX SCH ×3 (00:29→13:30)
[2017-01-26] MEDS: PANTOPRAZOLE 40 MG TABLET PO SCH (08:37)
[2017-01-26] MEDS: FLUoxetine 20 MG CAPSULE PO SCH (08:37)
[2017-01-26] MEDS: SULFAMETHOX/TRIMETHOPRIM 800-160 MG TABLET PO SCH ×2 (08:37→14:09)
[2017-01-26] MEDS: NYSTATIN 500,000 UNIT/5 ML UDCUP SWISH/SWAL SCH ×2 (08:37→12:54)
[2017-01-26] MEDS: FLUCONAZOLE 100 MG TABLET PO SCH (08:37)
--- NOTE | 2017-01-26 08:59 | Pulmonology Progress Note ---
Pulmonary - PN: Subj Interval history: The patient is a 51-year-old black lady that has recently been diagnosed with HIV infection. She has not had any treatment. She has a history of drug abuse and schizophrenia. She came in with a near syncopal event. She been having diarrhea and not eating very well. She was having SVT and shortness of breath. She does have bilateral infiltrates. She was intubated and placed on the ventilator. She has done fairly well over the past few days. She is felt to have AIDS with pneumocystis pneumonia. She did diurese nicely. Her chest x- ray is getting better. She was extubated Wednesday and had a fairly good weekend. Her breathing is doing much better she has been moved to a regular room. She says she had a fairly good night and is moving around a little better. She is still coughing some and get short of breath easily. She is tolerating her medicines fairly well. Exam (Progress Note) - Constitutional Vitals: Period Temp Pulse Resp BP Sys/Molina Pulse Ox Last 24 Hr 97.2 F-98.8 F 110-120 17-20 108-141/73-84 80-99 Exam: General appearance: normal weight, she is sitting up in quite alert and comfortable. She has no definite respiratory distress now. - Head Head exam: Present: normal inspection, normocephalic - Eye Eye exam: Present: EOMI. Absent: scleral icterus Pupils: Present: IRIS - ENT ENT exam: Present: Unremarkable - Neck Neck exam: Absent: lymphadenopathy, meningismus, thyromegaly - Respiratory Respiratory exam: Present: She has good breath sounds bilaterally and moving air fairly well. She does have some crackles more on the left lung than the right. - Cardiovascular Cardiovascular exam: Present: regular rate and rhythm. Absent: gallop, systolic murmur - GI/Abdominal GI/Abdominal exam: Present: Her abdomen is a little distended but is soft and nontender. Bowel sounds are hypoactive. - Extremities Exam Extremities exam: Absent: calf tenderness, edema - Neurological Exam Neurological exam: Present: She is alert and comfortable and moving around in her room. - Psychiatric Psychiatric exam: Absent: anxious - Skin Skin exam: Present: warm, dry Results - Labs CBC & BMP: 01/25/17 03:53 01/25/17 03:53 Assessment and Plan (1) History of schizophrenia Status: Acute Assessment and plan: The patient apparently takes Prozac and Seroquel. Current Visit: Yes (2) Pneumonitis Status: Acute Assessment and plan: Patient does have bilateral infiltrates and her sputum is positive for pneumocystis. She is now on oral Bactrim and prednisone. She is feeling a little better. Will repeat a chest x-ray tomorrow. Current Visit: Yes (3) Acute HIV infection Status: Acute Assessment and plan: She will be followed by ID. She will need treatment for AIDS. Current Visit: Yes
[2017-01-26] MEDS ORDERED: predniSONE 20 MG TABLET PO SCH (09:00)
[2017-01-26] MEDS ORDERED: INFLUENZA VIRUS VACCINE 0.5 ML SYRINGE IM ONE (09:00)
--- NOTE | 2017-01-26 09:47 | XRay Report ---
XR chest 1V portable Indication: Pneumonia Comparison: Chest x-ray dated January 23, 2017 Technique: Single frontal view of the chest. Findings: The cardiomediastinal silhouette is stable in configuration. Interval improved hazy opacification within the left lung. Minimal hazy opacification remains within the bilateral infrahilar regions. Visualized osseous and surrounding soft tissue structures appear grossly unchanged. IMPRESSION: As above. PROCEDURE INTERPRETED AT [facility] DEPARTMENT OF RADIOLOGY Final Report Signed by: Dr Moy Cunningham
[2017-01-26 11:03] VITALS: BP 100/65
--- NOTE | 2017-01-26 11:53 | Discharge Summary ---
Hospital Course - Hospital Course Hospital Course: Mrs. Vu was admitted to the hospital with pneumocystis pneumonia. Her oxygenation is improved and she is ambulating in the room. The patient has an appointment tomorrow at [facility] at 9 AM. The patient was also make an appointment to see her therapist at [facility] concerning her schizophrenia. The patient is ready for discharge home. On the date of discharge, the chest is generally clear with some residual scattered rhonchi. Heart has regular rate and rhythm. Patient medications were reconciled upon admission, and again at the time of discharge. The patient was screened for tobacco use and found to be a current smoker. The patient was given 4 minutes of tobacco avoidance education. The patient's medical decsion maker is themself, and when asked, they asked to be Full code. Discharge Time was 33 minutes, including final examination, evaluation and planning, education, reconciliation of medications, writing prescriptions, coordinating care with case resolution specialist, and preparing discharge documentation. - Time spent with patient Time with patient DS: Greater than 30 minutes Time spent discussing smoking cessation with patient: 3 to 10 minutes Diagnosis - Discharge Diagnosis (1) PCP (pneumocystis jiroveci pneumonia) Status: Acute (2) History of schizophrenia Status: Chronic (3) HIV disease Status: Chronic Discharge Plan - Discharge Data Disposition: Disch To Home/Self Care Condition at Discharge: Stable Discharge Diet: advance to your usual diet Activity: resume usual activities as tolerated - Discharge Medications New predniSONE TAB [PredniSONE] 20 mg PO DAILY #30 tablet Fluconazole Tab [Diflucan Tab] 100 mg PO DAILY #20 tablet Sulfameth/Trimeth 800-160 Tab [Bactrim DS Tab] 2 tablet PO TID #60 tablet Continue HydrOXYzine PAMOATE CAP [Vistaril Cap] 50 mg PO TID PRN PRN Reason: Agitation QUEtiapine XR [SEROquel XR] 450 mg PO BEDTIME Fluoxetine HCl [Prozac] 40 mg PO DAILY - Follow Up or Referral - Forms/Instructions Exam - Constitutional Vitals: Period Temp Pulse Resp BP Sys/Molina Pulse Ox Last 24 Hr 97.2 F-98.9 F 110-120 16-20 100-141/65-83 80-99 Discharge Results Labs on day of discharge: Labs from last 24 hours 01/15/17 17:51 Syphilis IgG Antibody Negative HIV-1 Int Raltegravir Not Reportable HIV-1 Int Elvitegravir Not Reportable HIV Genotyping EER Interp HIV Zidovudine Resist Susc HIV Stavudine Resist Susc HIV Lamivudine Resist Susc HIV Didanosine Resist Susc HIV Tenofovir Resist Susc HIV Abacavir Resist Susc HIV Efavirenz Resist Susc HIV Nevirapine Resist Susc HIV Etravirine Resist Susc HIV Dolutegravir Resist Not Reportable HIV Nucleos RT Inhibit See comments Non-Nucl RT Inhibitors See comments Assoc Protease Mutation See comments Fosamprenavir Resist Susc Atazanavir w Ritonavir Susc Indinavir w Ritonavir Susc HIV Nelfinavir Resist Susc Lopinavir w Ritonavir Susc HIV Rilpivirine Resist Susc Saquinavir w Ritonavir Susc Tipranavir w Ritonavir Susc Darunavir w Ritonavir Susc HIV-1 Last Viral Load 72109 Viral Load Date 01/20/2017 Emtricitabine Resis Susc DS: Provider Date of admission: 01/15/17 16:09 Primary care physician: . No PCP Attending physician on admission: Bob Tariq MD Consults: 01/15/17 16:07 Consult to Physician [CONS] Routine Comment: Consulting Provider: Arleen Fong Consulting Provider Notified: Yes When should Consulting Provider be notified: Now Consult to Specialist Group: Infectious Disease Person Notified: ALANA Date Notified: 01/18/17 Time Notified: 08:40 01/15/17 19:29 Consult to Dietitian [CONS] Routine Reason for Dietitian: Dietary Consult 01/15/17 19:34 Consult to Pastoral Services [CONS] Routine Comment: recent bad diagnosis. Pastoral Screen: Request Plumbing Contractor Visit Pastoral Screen Source of Request: Patient 01/15/17 22:16 Consult to Case Mgmt/Social Srvs [CONS] Routine Reason for Case Mgmt/Social Srvs: Discharge Planning Consult Comment: needs help paying for medication 01/16/17 05:28 Consult to Physician [CONS] Routine Comment: low O2 sats Consulting Provider: Sergio Quintanilla 01/16/17 05:30 Consult to Pharmacy [CONS] Routine Reason for Pharmacy Consult: Dose/Manage Vancomycin 01/18/17 09:00 Consult to Dietitian [CONS] Routine Reason for Dietitian: TF-Initiate/Manage 01/20/17 08:08 Consult to Physical Therapy [CONS] Routine Reason for Physical Therapy: Evaluate and Treat Consult Comment: per early mobility protocol Discharging clinician: Vincenzo Bhatia MD
--- NOTE | 2017-01-27 21:24 | Order Completion Report ---
See report scanned to EMR
== END 2017-01-26 15:19 | disposition home or self-care (01) | DRG 974 ==
LOC: N.ED 13:35 → SUATTDRO 16:09 → N.EDINP 16:26 → N.ICU 16:38 → N.3E 01-24 18:17
PROVIDERS: ADMIT Family Medicine; ATTEND Internal Medicine